=== PATIENT | female | born 1975 | race Caucasian/White ===

== ENCOUNTER 2016-08-28 09:02 | Emergency (ER) | payer OTHER ==
[~2016-08-28] VITALS: Ht 160 cm; Wt 68.2 kg
[~2016-08-28 09:02] MED LIST: CLON-399 PO; LORA-303 PO; LORA1TAB PO
[2016-08-28 09:06] VITALS: BP 126/84; PULSE 77; RESP 15; O2SAT 98
--- NOTE | 2016-08-28 09:08 | ED.REPORT ---
HPI-Abd Pain F 40 and Over Date of Service Aug 28, 2016 ED Provider: Uri Forde DO Pt is a 40 y/o female w/ a hx of kidney stones, HTN, alcoholism in recovery, presenting to the ED c/o right flank pain onset 24 hours ago. She has had kidney stones previously and believes this pain to be exactly similar. Her first kidney stone required surgery due to size. She c/o associated dysuria, nausea. Pt denies hematuria, fever, chills, vomiting, abdominal pain. Nursing Notes Stated Complaint: ABDOMINAL PAIN Chief Complaint: Female Abdominal Pain Nursing Notes Reviewed: Yes Allergies: Coded Allergies: morphine (Verified Allergy, Intermediate, Rash, 02/25/16) CAN TOLERATE OXYCODONE PER PATIENT 10/27/15 VLO metoclopramide (Verified Adverse Reaction, Severe, EPS, 02/25/16) Scheduled PRN Clonidine ER (Clonidine ER) 0.1 Mg Tablet 0.1 MG PO PRN HYPERtension Lorazepam (Lorazepam) 1 Mg Tablet 1 MG PO TID PRN PRN For Anxiety Lorazepam (Ativan) 1 Mg Tablet 1 MG PO DIRECTED PRN PRN For Anxiety Take 2 tabs every 6 hours for 2 days, 1 tab every 6 hours for 2 days, 1 tablet 3 times a day for 2 days, stop. General Time Seen by MD: 09:08 Chief Complaint Flank pain right Hx Obtained From: Patient Arrived By: Walk-in Sudden in Onset?: No Onset Occurred: 1 day ago Symptom Duration: Since onset Progression since Onset: Constant Location: : Flank right Quality: Painful Severity: Current: Moderate Severity: Maximum: Severe Recent Healthcare: Previous diagnosis Similar Sx Previous: Yes Past Medical History Past Medical History Notes: Multiple ED visits for ETOH (last ED visit 05/31/16) Past Medical History Anxiety GERD Kidney Stone UTI Alcohol withdrawal- Acute visual hallucinations and altered mental status, likely secondary to alcohol withdrawal alcohol abuse Echogenic liver chronic anemia Reports: Hypertension Past Surgical History breast implants 12/27/2015, rectocele and cystocele Abdominoplasty Reports: Hysterectomy Family History non-contributory Smoking History Never Smoker Social History Former alcoholic Alcohol Use: In recovery Drug Use: Meth Other Social History: Good social support, , Local resident Occupation works 2 jobs has 5 children Ambulatory Status Independent Review of Systems Constitutional: Denies: Chills, Fever Respiratory: Denies: Non-productive cough, Shortness of breath Cardiovascular: Denies: Chest pain, Dyspnea on exertion GI: Reports: Nausea, Denies: Abdominal pain, Vomiting Female: Reports: Dysuria, Flank pain, Denies: Hematuria Complete sys rev & neg: except as marked. Physical Exam Vital Signs Vital Signs (First) Date Time Temp Pulse Resp B/P Pulse Ox O2 Delivery O2 Flow Rate FiO2 08/28/16 09:06 36.8 77 15 126/84 98 Room Air Initial VS: Reviewed Head / Eyes: Atraumatic, Normocephalic, PERRL ENT: Mucous membranes moist, Conjunctiva normal, No scleral icterus Neck: Supple, Full range of motion Extremities: Vascular intact, Neuro intact, No swelling, No tenderness Skin: Warm, Dry, No cyanosis Neurologic: Alert, Oriented, Nonfocal Psychiatric: Mood/affect normal, Behavior normal, Normal thought content General/Constitutional: Awake, Alert, Cooperative, Not toxic appearing Distress / Hydration: Positive: Distress moderate Appearance / Presentation: Positive: In pain Respiratory / Chest: Atraumatic, Breath sounds NL, Breath sounds = bilat, No respiratory distress, No rales, No rhonchi, No wheezing, No retractions, No stridor, No chest tenderness, No chest wall deformity, No crepitus Cardiovascular: Heart rate NL, Regular rhythm, Heart sounds NL, No gallop, No murmurs, No rubs, Cap refill not delayed, Peripheral circulation NL Abdomen: Atraumatic, Soft, No guarding, No rebound, No palpable mass Tenderness/Guarding/Rebound: Positive: Tender flank L (mild), Tender flank R ( moderate) Back: Full range of motion, Painless range of motion Interpretation & Diagnostics Lab Results Interpretation Result Diagram: 08/28/16 0958 08/28/16 0958 Test 08/28/16 09:58 White Blood Count 5.6th/mm3 (3.8-10.1) Red Blood Count 4.06mil/mm3 (3.90-5.20) Hemoglobin 13.4g/dL (12.0-15.6) Hematocrit 38.4% (35.0-46.0) Mean Corpuscular Volume 94.6fL (81-100) Mean Corpuscular Hemoglobin 33.0pg (27.0-35.0) Mean Corpuscular Hemoglobin Concent 34.9% (32.0-37.0) Red Cell Distribution Width 11.7% (12.3-15.4) Platelet Count 106bil/L (150-400) Neutrophils (%) (Auto) 66.2% (40-74) Lymphocytes (%) (Auto) 25.6% (14-46) Monocytes (%) (Auto) 7.2% (4-12) Eosinophils (%) (Auto) 0% (0-5) Basophils (%) (Auto) 0.5% (0-3) Sodium Level 141mEq/L (134-144) Potassium Level 4.2mEq/L (3.5-5.2) Chloride Level 98mEq/L (97-108) Carbon Dioxide Level 19mmol/L (18-29) Blood Urea Nitrogen 10mg/dL (6-24) Creatinine 0.69mg/dL (0.57-1.00) Estimat Glomerular Filtration Rate 135mL/min (>59) Glucose Level 117mg/dL (60-99) Calcium Level 9.0mg/dL (8.5-10.1) Magnesium Level 1.8mg/dL (1.6-2.6) Total Bilirubin 0.4mg/dL (0.0-1.2) Aspartate Amino Transf (AST/SGOT) 29U/L (0-50) Alanine Aminotransferase (ALT/SGPT) 28U/L (0-32) Alkaline Phosphatase 62U/L (25-150) Total Protein 7.6g/dL (6.4-8.4) Albumin 4.8g/dL (3.4-5.0) Lipase 19U/L (13-60) Hold [place] Top Tube Received (Received) Re-Eval/Medical Decision Med Decision/Clinical Course Initially, there is moderate concern for a large obstructing kidney stone given the patient's presentation and reported clinical history. An IV was placed and she was medicated. It was then noted by staff that she had eloped from the emergency department apparently with her IV still in Place. Police Department was notified after the premises had been searched and no signs of the patient had been found. Please refer to the nursing notes for further detail on this. Source of Hx: Old records Re-Evaluation/Progress : Time of Eval: 10:10 Re-Evaluation/Progress Note: Patient has left the ED without notifying staff. She unhooked her IV fluids and got dressed and left after the Dilaudid injection. Her IV remained in place. Security will be notified. Counseled Regarding: Diagnosis, Lab results, Need for follow-up, When/why to return to ED Discharge & Departure Primary Impression: Flank pain Disposition: Home (eloped) Discharge Condition All VS Reviewed: Yes Condition: Stable patient eloped Referrals: Karuna Clarke MD (PCP) Karlaibpayton Attestation Portions of this note were transcribed by Dain Herr. I, Dr. Forde personally performed the history, physical exam and medical decision-making; I reviewed and confirmed the accuracy of the information in the transcribed note. Signed by Rona Tate, 08/28/16 - 1000 copies to: Karuna Clarke MD, Timothy S DO Aug 28, 2016 09:08 DAIN HERR Aug 28, 2016 09:16
[2016-08-28] MEDS ORDERED: 0.9% Sodium Chloride 1,000 ML IV ONE (09:13)
[2016-08-28] MEDS ORDERED: Ondansetron 2 mg/mL 2 mL Inj IVPUSH PRN (09:15)
[2016-08-28] MEDS ORDERED: HYDROmorphone 0.5 mg/0.5 mL iSecure Syringe IVPUSH SCH (09:35)
[2016-08-28] MEDS ORDERED: Promethazine Inj 25 MG in Dextrose 5%-Pha MIX 50 ML IV ONE (09:45)
[2016-08-28] MEDS ORDERED: diphenhydrAMINE 50 mg Capsule PO ONE (09:45)
[2016-08-28] MEDS ORDERED: diphenhydrAMINE 25 mg Capsule PO ONE (10:10)
[2016-08-28 10:30] LABS: BASOPHILS % (AUTO) 0.5 % (0-3); EOSINOPHILS % (AUTO) 0 % (0-5); MONOCYTES % (AUTO) 7.2 % (4-12); Mean Corpuscular Volume 94.6 fL (81-100); NEUTROPHILS % (AUTO) 66.2 % (40-74)
[2016-08-28 10:39] LABS: Magnesium 1.8 mg/dL (1.6-2.6)
== END 2016-08-28 10:15 | disposition home or self-care (01) ==
LOC: SED 09:02
DX: R10.31 Right lower quadrant pain (principal); R30.0 Dysuria; R11.0 Nausea; I10 Essential (primary) hypertension; K21.9 Gastro-esophageal reflux disease without esophagitis; Z88.5 Allergy status to narcotic agent; Z88.8 Allergy status to other drugs, medicaments and biological substances
CPT/HCPCS: 36415; 80053; 83690; 83735; 85025; 96361; 96374; 96375; 99285; J1170; J2405; J7030

== ENCOUNTER 2016-12-29 00:16 | Emergency (ER) | payer OTHER ==
[~2016-12-29] VITALS: Ht 160 cm; Wt 66.4 kg
[2016-12-29 00:20] VITALS: BP 161/81; PULSE 95; RESP 20; O2SAT 98
--- NOTE | 2016-12-29 00:58 | ED.REPORT ---
HPI-Neurologic Deficit Date of Service Dec 29, 2016 ED Provider: Cooper Lopez DO Patient is a 41 year old female with a history of alcohol abuse who presents to the ED complaining of tingling in her left arm onset 4 days ago. Associated symptoms include fatigue, shaking, unsteady gait, headache, an intermittent "rushing" feeling in her ears, tingling that radiates down her left leg, episodes of involuntary muscle spasms and the inability to finish sentences. Patient's notes that these episodes generally happen with anxiety provoking situations such as loud noises. She was seen yesterday, where she had a CT done and they told her she was not having a stroke. The patient's last drink was 4 months ago. She denies history of a seizure disorder. Nursing Notes Stated Complaint: STROKE SYMPTOMS Chief Complaint: Neuro Symptoms/ Deficits Nursing Notes Reviewed: Yes Allergies: Coded Allergies: morphine (Verified Allergy, Intermediate, Rash, 12/29/16) CAN TOLERATE OXYCODONE PER PATIENT 10/27/15 VLO metoclopramide (Verified Adverse Reaction, Severe, EPS, 12/29/16) Scheduled PRN Clonidine ER (Clonidine ER) 0.1 Mg Tablet 0.1 MG PO PRN HYPERtension Lorazepam (Lorazepam) 1 Mg Tablet 1 MG PO TID PRN PRN For Anxiety Lorazepam (Ativan) 1 Mg Tablet 1 MG PO DIRECTED PRN PRN For Anxiety Take 2 tabs every 6 hours for 2 days, 1 tab every 6 hours for 2 days, 1 tablet 3 times a day for 2 days, stop. General Time Seen by Provider: 00:45 Chief Complaint Numbness arm... (Left) Hx Obtained From: Patient Arrived By: Walk-in Sudden in Onset?: Yes Onset Occurred: 4 days ago Symptom Duration: Since onset Location: : Arm left: Head: Leg left Quality: Fullness, Painful, Sharp Associated with: Reports: Balance problem, Headache, Involuntary movements Recent Healthcare: No recent hospitalization, Recent doctor visit Similar Sx Previous: No Past Medical History Past Medical History Notes: Multiple ED visits for ETOH (last ED visit 05/31/16) Past Medical History Anxiety GERD Kidney Stone UTI Alcohol withdrawal- Acute visual hallucinations and altered mental status, likely secondary to alcohol withdrawal alcohol abuse Echogenic liver chronic anemia Reports: Hypertension Past Surgical History breast implants 12/27/2015, rectocele and cystocele Abdominoplasty Reports: Hysterectomy Family History non-contributory Smoking History Current Some Day Smoker Social History Former alcoholic Alcohol Use: In recovery Drug Use: Meth Other Social History: Good social support, , Local resident Occupation works 2 jobs has 5 children Ambulatory Status Independent Review of Systems Constitutional: Reports: Fatigue, Denies: Chills, Fever Respiratory: Denies: Non-productive cough, Shortness of breath GI: Denies: Vomiting Musculoskeletal: Reports: Extremity pain Skin: Denies Itching, Denies Rash Neurologic: Reports: Headache, Numbness, Problem walking, Slurred speech Complete sys rev & neg: except as marked. Ears / Nose / Throat: Reports: Ear ringing bilateral Physical Exam Initial Vital Signs Vital Signs (First) Date Time Temp Pulse Resp B/P Pulse Ox O2 Delivery O2 Flow Rate FiO2 12/29/16 00:20 37.0 95 20 161/81 98 Room Air Initial VS: Reviewed General/Constitutional: Awake, Alert, No acute distress Head / Eyes: Atraumatic, Normocephalic, PERRL, EOMI Respiratory / Chest: Atraumatic, Breath sounds NL, Breath sounds = bilat, No respiratory distress Cardiovascular: Heart rate NL, Regular rhythm, Heart sounds NL Neurologic: Oriented X3, No motor deficits, No sensory deficits, Memory NL Abdomen: Atraumatic, Soft, Non-tender Lower Extremity / Pelvis / MS: Atraumatic, Full range of motion Skin: Atraumatic, Color NL, No rash, Warm, Dry Abnormal Mood/Affect: Positive: Anxious, Pressured speech Interpretation & Diagnostics Lab Results Interpretation Result Diagram: 12/29/16 0125 Test 12/29/16 01:18 12/29/16 01:25 12/29/16 02:30 Urine Color Yellow (YELLOW) Urine Appearance Hazy (CLEAR,HAZY) Urine pH 7.0 (5.0-8.0) Urine Specific [place] 1.006 (1.003-1.035) Urine Protein Negativemg/dL (NEG,TRACE) Urine Glucose (UA) Negativemg/dL (NEGATIVE) Urine Ketones Negativemg/dL (NEGATIVE) Urine Occult Blood Negative (NEGATIVE) Urine Nitrite Negative (NEGATIVE) Urine Bilirubin Negative (NEGATIVE) Urine Urobilinogen Normalmg/dL (NORMAL) Urine Leukocyte Esterase Negative (NEGATIVE) Urine RBC 0-2/hpf (0-2) Urine WBC 0-5/hpf (0-5) Urine Epithelial Cells Many/hpf (NONE-MOD) Urine Crystals None seen (NONE SEEN) Urine Bacteria Few/hpf (NONE-FEW) Urine Hyaline Casts None/lpf (NONE) Urine Granular Casts None seen (NONE SEEN) Urine Waxy Casts None seen (NONE SEEN) Urine Red Blood Cell Casts None seen (NONE SEEN) Urine White Blood Cell Casts None seen (NONE SEEN) Urine Mucus None seen (None Seen) Urine Trichomonas None seen (NONE SEEN) Urine Yeast None (NONE SEEN) Urinalysis Comment None Urine Culture Reflexed Not indicated White Blood Count 7.1th/mm3 (3.8-10.1) Red Blood Count 4.02mil/mm3 (3.90-5.20) Hemoglobin 13.3g/dL (12.0-15.6) Hematocrit 39.8% (35.0-46.0) Mean Corpuscular Volume 99.0fL (81-100) Mean Corpuscular Hemoglobin 33.1pg (27.0-35.0) Mean Corpuscular Hemoglobin Concent 33.4% (32.0-37.0) Red Cell Distribution Width 12.2% (12.3-15.4) Platelet Count 171bil/L (150-400) Neutrophils (%) (Auto) 51.3% (40-74) Lymphocytes (%) (Auto) 33.2% (14-46) Monocytes (%) (Auto) 10.9% (4-12) Eosinophils (%) (Auto) 4.0% (0-5) Basophils (%) (Auto) 0.3% (0-3) Hold [place] Top Tube Received (Received) Troponin T 0.010ug/L (0.0-0.011) Thyroid Stimulating Hormone (TSH) 5.490uIU/mL (0.450-4.500) Free Thyroxine 0.87ng/dL (0.82-1.77) ECG Interpretation Time: 01:14 Interpreted by: ED physician Normal ECG Interpretation: Normal rate (96), Normal sinus rhythm Re-Eval/Medical Decision Med Decision/Clinical Course A stroke syndrome/vascular territory infarct seems unlikely however this warrants CT and CT angios. I think that maybe she is having seizures or profound anxiety. Either way IV Ativan followed by Valium seemed to help. Her NIH stroke score is 0. Her symptoms been ongoing for greater than [address] and U Gary is normal and her head CT is normal stroke is highly unlikely. I do recommend close outpatient follow-up. I am signing this out to Dr. Burciaga and he will follow up with a CT and CT angiogram. Re-Evaluation/Progress #1: Time of Eval: 02:20 Re-Evaluation/Progress Note: Patient is still having tremors. Re-Evaluation/Progress #2: Time of Eval: 03:09 Patient Status: Mild relief Re-Evaluation/Progress Note: Discussed plan for transfer of care and plan for CT. Counseled Regarding: Diagnosis, Lab results, Need for follow-up, When/why to return to ED Discharge & Departure Shift Change Sign-Out Patient Care Transferred: Yes Discussed Complaint(s): Yes Impression: Primary Impression: Tremor Additional Impression: Myoclonic jerking Disposition: Home Discharge Condition All VS Reviewed: Yes Condition: Stable Patient Instructions: Anxiety (ED), Generalized Tonic Clonic Seizures (ED), Ischemic Stroke (DC) Additional Instructions: Your CT scans were normal and reassuring. It is unlikely you had a stroke. I recommend follow up with EEG and MRI testing. You can take 1 Valium every 8 hours for the tremor. Do not drink alcohol or drive while taking the Valium. Do not combine with Acetaminophen. Do not drive tonight, as you received Valium here in the ED. Call the attached referral for Dr. Aaron on Friday to schedule a follow up appointment. Let them know you were seen at the ED and underwent a stroke workup that was normal. Return to the emergency department if you develop any new or concerning symptoms. Referrals: Karuna Clarke MD (PCP) Alycia Aaron MD Care Transferred to: Dr. Galicia Care Transferred at: 03:06 Rona Attestation Portions of this note were transcribed by Ruma Valenzuela. I, Dr. Lopez personally performed the history, physical exam and medical decision-making; I reviewed and confirmed the accuracy of the information in the transcribed note. Signed by: Rona Camilo, 12/29/16 and 0120 copies to: Alycia Aaron MD; Karuna Clarke MD, Todd P DO Dec 29, 2016 00:58 Charity Valenzuela Dec 29, 2016 01:11
[2016-12-29 01:32] LABS: APPEARANCE,URINE HAZY (CLEAR,HAZY); COLOR,URINE YELLOW (YELLOW); OCCULT BLOOD,URINE NEGATIVE (NEGATIVE); UROBILINOGEN,URINE NORMAL (NORMAL)
[2016-12-29 01:38] LABS: BASOPHILS % (AUTO) 0.3 % (0-3); MONOCYTES % (AUTO) 10.9 % (4-12); Mean Corpuscular Hemoglobin 33.1 pg (27.0-35.0); NEUTROPHILS % (AUTO) 51.3 % (40-74); Platelet Count 171 bil/L (150-400)
[2016-12-29] MEDS ORDERED: oxyCODONE-Acetamin 5-325 mg Tablet PO ONE (02:30)
[2016-12-29 03:10] LABS: TROPONIN T 0.01 ug/L (0.0-0.011)
[2016-12-29 03:24] VITALS: BP 139/86; PULSE 18; RESP 17; O2SAT 96
[2016-12-29 05:08] VITALS: BP 135/84; PULSE 19; RESP 19; O2SAT 94
[2016-12-29] MEDS ORDERED: Sodium Chloride LOK Flush 10 mL Syringe IVFLUSH SCH (08:30)
--- NOTE | 2016-12-29 10:33 | DRSVH ---
PROCEDURE: CT ANGIO HEAD AND NECK (P) INDICATIONS: left arm weaknes TECHNIQUE: Pre-contrast 4.5 mm thick sections acquired from the foramen magnum to the vertex. After the adminis tration of intravenous contrast, 1 mm thick sections acquired from the aortic arch through the [place] of [place]. Post-contrast 4.5 mm thick sections then re-acquired from the foramen magnum to the vert ex. 3-dimensional cetxapf-espsjrgax-ihpayszofn (MIP) and/or volume rendering reformats were acquired of the central intracranial vasculature and neck separately. For radiation dose reduction, the foll owing was used: automated exposure control, adjustment of mA and/or kV according to patient size. COMPARISON: [facility], CT, CT BRAIN WO CON, 05/17/2016, 17:48. FINDINGS: Image quality: Excellent. BRAIN: CSF spaces: Ventricles are normal in size and shape. Basal cisterns are patent. No extra-axial flu id collections. Brain: No midline shift. No intracranial bleeds or masses. Loya-white matter interface appears int act. Skull and face: Calvarium and facial bones appear intact, without suspicious lesions. Orbits appear normal. Sinuses: Sinuses and mastoids are clear. HEAD CT ANGIOGRAPHY: Anterior circulation: Intracranial internal carotid arteries are normal in size and flow. The flow within the paired anterior cerebral arteries is normal and symmetric. The flow within the middle cer ebral arteries is normal and symmetric. The anterior communicating artery is seen. No aneurysms are seen. Posterior circulation: Visualized portions of the vertebral arteries demonstrate asymmetric right ve rtebral dominant caliber, and join to form a normal appearing basilar artery. Flow within the chemical plant technical director ior cerebral arteries is normal and symmetric. No aneurysms are seen. NECK CT ANGIOGRAPHY: Carotid system: The great vessels demonstrate a conventional anatomy as they arise from the aortic a [facility]. The origins of the common carotid arteries appear patent. The common carotid arteries demonstr ate normal caliber and courses. The bifurcation regions are both widely patent. The internal caroti d arteries demonstrate normal calibers and courses. Posterior circulation: The origins of the vertebral arteries both appear widely patent. The more lester perior extracranial portions of both vertebral arteries also demonstrate normal courses and calibers. They join to form a normal appearing basilar artery. Soft tissues: Visualized neck soft tissues demonstrate no suspicious abnormalities. Bones: No suspicious bony lesions. Visualized cervical spine appears normally aligned. IMPRESSION: No aneurysm or stenosis found, source of current symptoms is not seen. Right vertebral a rtery dominant posterior circulation, as a normal anatomic variant. Dictated by: Juan Lucero M.D. on 12/29/2016 at 10:28 Approved by: Juan Lucero M.D. on 12/29/2016 at 10:31
== END 2016-12-29 05:10 | disposition home or self-care (01) ==
LOC: SED 00:16
DX: R25.1 Tremor, unspecified (principal); G25.3 Myoclonus; I10 Essential (primary) hypertension; K21.9 Gastro-esophageal reflux disease without esophagitis; F17.200 Nicotine dependence, unspecified, uncomplicated; Z90.710 Acquired absence of both cervix and uterus; F10.10 Alcohol abuse, uncomplicated
CPT/HCPCS: 36415; 70496; 70498; 80053; 81000; 84439; 84443; 84484; 85025; 93005; 96374; 96375; 99285; J2060; J3360; Q9967

== ENCOUNTER 2017-01-04 12:27 | Observation (INO) | payer OTHER ==
[2017-01-04] VITALS (7 sets, daily range): BP systolic 82–151; BP diastolic 58–113; PULSE 61–72; RESP 14–18; O2SAT 97–100
[~2017-01-04] VITALS: Ht 160 cm; Wt 71.3 kg
--- NOTE | 2017-01-04 12:42 | ED.REPORT ---
HPI-General Illness Date of Service Jan 04, 2017 ED Provider: Uri Forde DO The patient is a 41 year old female with history of anxiety, alcohol abuse, GERD , hypertension, and chronic anemia, who presents to the emergency department with multiple complaints. The patient states initially about 1 week ago she experienced extreme fatigue. She then developed dizziness, slurred speech, and difficulty finishing sentences and word finding. She then developed tremors, jolts of pain down her arms and legs, headache, and rushing sounds in her ears. She denies bladder or bowel incontinence, numbness or focal weakness. This is her 4th visit for these symptoms since onset. At one point she was given Valium that helped with her muscle pain. Today she developed visual and auditory hallucinations. The patient states she is seeing things that are not there and has been talking to people that aren't there. She does believe her anxiety is playing a role in these symptoms. She has been unable to sleep over the last several days. She denies new medications or medication changes. The patient has history of alcohol abuse. Her last drink was 4 months ago. She just got home from treatment 2 weeks ago. She denies recent illnesses. Nursing Notes Stated Complaint: HALLUCINATIONS/WEAKNESS Chief Complaint: General Complaint Nursing Notes Reviewed: Yes Allergies: Coded Allergies: morphine (Verified Allergy, Intermediate, Rash, 12/29/16) CAN TOLERATE OXYCODONE PER PATIENT 10/27/15 VLO metoclopramide (Verified Adverse Reaction, Severe, EPS, HALLUCINATIONS, 01/04/17) Scheduled Bupropion ER (Bupropion ER) 300 Mg Tab.er.24h 300 MG PO QAM Clonidine (Clonidine) 0.2 Mg Tablet 0.2 MG PO BID Divalproex DR (Depakote DR) 500 Mg Tablet 1,000 MG PO HS Swallowed whole without chewing to avoid local irritation of the mouth and throat. Gabapentin (Gabapentin) 600 Mg Tablet 600 MG PO BID Ranitidine (Ranitidine) 150 Mg Capsule 150 MG PO BID Topiramate ER (Topiramate ER) 150 Mg Capsule 300 MG PO HS Trazodone (Trazodone) 100 Mg Tablet 200 MG PO HS Venlafaxine ER (Venlafaxine ER) 225 Mg Tab.er.24 225 MG PO QAM Scheduled PRN Acetaminophen (Acetaminophen) 325 Mg Tablet 650 MG PO DAILY PRN PRN For Headache Ibuprofen (Ibuprofen) 200 Mg Capsule 400 MG PO DAILY PRN PRN For Headache Prochlorperazine Maleate (Prochlorperazine) 10 Mg Tablet 10 MG PO Q8 PRN PRN For Nausea/Vomiting Sumatriptan Succinate (Sumatriptan Succinate) 50 Mg Tablet 50 MG PO ASDIRECTED PRN PRN For Headache TAKE 1 TABLET AT ONSET OF MIGRAINE. MAY REPEAT IN 2 HRS IF NEEDED. MAX 2 DOSES/24 HRS General Time Seen by MD: 12:39 Chief Complaint Other (hallucinations) Hx Obtained From: Patient, Spouse Arrived By: Walk-in Sudden in Onset?: No Onset Occurred: More than a week ago... Symptom Duration: Since onset Severity: Current: No pain currently Severity: Maximum: No pain Recent Healthcare: No recent hospitalization, Recent doctor visit Similar Sx Previous: Yes Past Medical History Past Medical History Notes: Multiple ED visits for ETOH Past Medical History Anxiety GERD Kidney Stone UTI Alcohol withdrawal- Acute visual hallucinations and altered mental status, likely secondary to alcohol withdrawal Alcohol abuse Echogenic liver Chronic anemia Reports: Hypertension Past Surgical History Breast implants 12/27/2015, Rectocele and cystocele Abdominoplasty Reports: Hysterectomy Family History non-contributory Smoking History Current Some Day Smoker Social History Hx of alcohol abuse, last drink 4 months ago. Alcohol Use: In recovery Drug Use: Meth Other Social History: Good social support, , Local resident Occupation works 2 jobs has 5 children Ambulatory Status Independent Review of Systems +jolts of pain Full Review of Systems Constitutional: Reports: Fatigue, Denies: Chills, Fever Ears / Nose / Throat: Reports: Ear ringing bilateral, Denies: Nasal congestion, Sore throat Respiratory: Denies: Non-productive cough GI: Denies: Abdominal pain, Diarrhea, Nausea, Vomiting Neurologic: Reports: Dizziness, Headache, Shaking (tremors), Slurred speech Psychiatric: Reports: Anxiety, Hallucinations, auditory, Hallucinations, visual Complete sys rev & neg: except as marked. Physical Exam Vital Signs Vital Signs Date Time Temp Pulse Resp B/P Pulse Ox O2 Delivery O2 Flow Rate FiO2 01/04/17 18:22 69 16 151/113 01/04/17 17:30 65 14 136/99 99 Room Air 01/04/17 15:36 70 16 138/99 99 Room Air 01/04/17 14:22 66 15 116/86 01/04/17 12:33 36.2 72 18 82/58 100 Initial VS: Reviewed ENT: Mucous membranes moist, Conjunctiva normal, No scleral icterus Neck: Supple, Non-tender, Full range of motion Respiratory: Breath sounds normal, Clear to auscultation, No respiratory distress Cardiovascular: Regular rate & rhythm, Heart sounds normal, Intact distal pulses Abdomen / GI: Soft, Non-tender, No guarding, No rebound, No distention Extremities: Vascular intact, Neuro intact, No swelling, No tenderness Skin: Warm, Dry, No cyanosis General/Constitutional: Cooperative She appears mildly somnolent. Head / Eyes: Atraumatic, Normocephalic, PERRL, EOMI Neurologic: Oriented X3, Speech NL, No motor deficits, No sensory deficits, CN II - XII intact, Cerebellar NL, Memory NL Psychiatric: Affect NL, Mood NL, Not suicidal, Not homicidal, Cognitive function NL, Judgment/insight NL, Thought content NL Abnormal Thinking / Perception: Positive: Hallucinations, auditory, Hallucinations, visual Interpretation & Diagnostics Lab Results Interpretation Result Diagram: 01/04/17 1408 01/04/17 1408 Test 01/04/17 14:08 01/04/17 15:45 01/04/17 18:00 White Blood Count 6.8th/mm3 (3.8-10.1) Red Blood Count 3.96mil/mm3 (3.90-5.20) Hemoglobin 13.0g/dL (12.0-15.6) Hematocrit 39.4% (35.0-46.0) Mean Corpuscular Volume 99.5fL (81-100) Mean Corpuscular Hemoglobin 32.8pg (27.0-35.0) Mean Corpuscular Hemoglobin Concent 33.0% (32.0-37.0) Red Cell Distribution Width 12.0% (12.3-15.4) Platelet Count 234bil/L (150-400) Sodium Level 138mEq/L (134-144) Potassium Level 4.2mEq/L (3.5-5.2) Chloride Level 102mEq/L (97-108) Carbon Dioxide Level 20mmol/L (18-29) Blood Urea Nitrogen 11mg/dL (6-24) Creatinine 1.04mg/dL (0.57-1.00) Estimat Glomerular Filtration Rate 84mL/min (>59) Glucose Level 105mg/dL (60-99) Calcium Level 9.2mg/dL (8.5-10.1) Total Bilirubin 0.2mg/dL (0.0-1.2) Aspartate Amino Transf (AST/SGOT) 12U/L (0-50) Alanine Aminotransferase (ALT/SGPT) 11U/L (0-32) Alkaline Phosphatase 52U/L (25-150) Total Protein 6.9g/dL (6.4-8.4) Albumin 3.9g/dL (3.4-5.0) Salicylates Level < 3.0ug/mL (30-250) Acetaminophen Level < 15.0ug/mL Rx (10-25) Alcohols < 10mg/dL (0-10) CSF Appearance Clear (CLEAR) CSF Color Colorless (COLORLESS) CSF WBC 1/mm3 (0-5) CSF RBC 0/mm3 CSF Mononuclear WBCs % CSF Polynuclear WBCs % CSF Other Cells CSF Glucose 69mg/dL (45-90) CSF Total Protein 44mg/dL (15-45) Urine Color Straw (YELLOW) Urine Appearance Clear (CLEAR,HAZY) Urine pH 6.5 (5.0-8.0) Urine Specific [place] <1.005 (1.003-1.035) Urine Protein Negativemg/dL (NEG,TRACE) Urine Glucose (UA) Negativemg/dL (NEGATIVE) Urine Ketones Negativemg/dL (NEGATIVE) Urine Occult Blood Negative (NEGATIVE) Urine Nitrite Negative (NEGATIVE) Urine Bilirubin Negative (NEGATIVE) Urine Urobilinogen Normalmg/dL (NORMAL) Urine Leukocyte Esterase Negative (NEGATIVE) Urine RBC 0-2/hpf (0-2) Urine WBC 0-5/hpf (0-5) Urine Epithelial Cells Few/hpf (NONE-MOD) Urine Crystals None seen (NONE SEEN) Urine Bacteria None/hpf (NONE-FEW) Urine Hyaline Casts None/lpf (NONE) Urine Granular Casts None seen (NONE SEEN) Urine Waxy Casts None seen (NONE SEEN) Urine Red Blood Cell Casts None seen (NONE SEEN) Urine White Blood Cell Casts None seen (NONE SEEN) Urine Mucus None seen (None Seen) Urine Trichomonas None seen (NONE SEEN) Urine Yeast None (NONE SEEN) Urinalysis Comment None Urine Culture Reflexed Not indicated Procedures Lumbar Puncture Text / Dict Note: Clear fluid obtained. Time: 15:35 Procedure Performed by: ED physician Consent / Setup / Site Prep: Informed consent provided, Consent from patient , Time-out performed, Hand hygiene observed, Stand sterile technique, Sterile drapes applied, Patient sitting up Skin Preparation Agent: Hibiclens - Chlorhexidine Local Anesthesia: Lidocaine 1%, 27g needle Inserted Needle at: L4 L5 Post-Procedure / Complications: Antibiotic oint applied, Dressing applied, No complications, Tolerated procedure well, Patient stable Re-Eval/Medical Decision Med Decision/Clinical Course She presents with 2 weeks of progressive tremulousness, headaches and other symptoms now, needing in auditory and visual hallucinations. Symptoms do not sound like a stroke or seizure activity, the patient had a reassuring head CT and CT angiogram head and neck within the past week or so. Given that her symptoms are progressive a lumbar puncture was performed, and unremarkable for subarachnoid hemorrhage, encephalitis, meningitis, Guillain-Garza syndrome. Patient has walked to and from the bathroom several times with intermittent levels of tremulousness. The case is discussed with social work and on-call psychiatry. Psychiatry suggested this may be some form of delirium tremens or Korsakoff syndrome. IV thiamine and banana bag are ordered. Additionally it is unclear whether her symptoms are related to the many different psychiatric medications that she is taking. Will plan to admit as the symptoms have been progressive and worsening. Psychiatry has agreed to consult on the patient. Source of Hx: Old records, Family Time of Eval: 14:44 Re-Evaluation/Progress Note: Discussed plan for LP with the patient. All questions were addressed. Time of Eval: 17:14 Re-Evaluation/Progress Note: Rechecked the patient. Discussed CSF results and options for plan. The patient would like to stay to have her medications adjusted. Time of Eval: 17:57 Re-Evaluation/Progress Note: Rechecked the patient. Discussed plan for admission. All questions were addressed. Consultation #1: Consulted With: airport utility worker Call Returned at: 17:41 Note: ED manager social responsibility evaluated the patient. She told the manager social responsibility that the hallucinations started after she ran out of the Valium. She has been on her other medications since August. She denies suicidal ideation, homicidal ideations, no previous attempts. The patient is agreeable to go home. Consultation #2: Referral / Consult Name: Rick Andrew MD Consulted With: Psychiatry Requested Call at: 17:48 Call Returned at: 17:50 Color Grinder: Agrees with eval Note: The patient's symptoms sounds like complication alcohol withdrawal or Korsakoff syndrome. He recommends Valium 10 mg BID. He will follow the patient is admitted. Consultation #3: Referral / Consult Name: Diamond Ritchie DO Consulted With: Hospitalist Requested Call at: 17:57 Call Returned at: 19:21 Color Grinder: Will see patient, Agrees with eval, Agrees with plan, Accepts admit Counseled Regarding: Diagnosis, Lab results, Need for follow-up, When/why to return to ED Discharge & Departure Primary Impression: Korsakoff syndrome Additional Impression: Hallucination Disposition: ADMITTED TO HOSPITAL Discharge Condition All VS Reviewed: Yes Condition: Stable Referrals: Karuna Clarke MD (PCP) Scribe Attestation Portions of this note were transcribed by Cehl Thacker. I, Dr. Forde personally performed the history, physical exam and medical decision-making; I reviewed and confirmed the accuracy of the information in the transcribed note. Signed by: Rona Meng, 01/04/2017 at 1800. copies to: Karuna Clarke MD, Timothy S DO Jan 04, 2017 12:42 Chel Thacker Jan 04, 2017 12:50
[2017-01-04] MEDS ORDERED: VENL75CA PO (13:13)
[2017-01-04] MEDS ORDERED: TOPI100T32 PO (13:13)
[2017-01-04] MEDS ORDERED: BUPR150T8 PO (13:13)
[2017-01-04] MEDS ORDERED: GABA-504 PO (13:13)
[2017-01-04] MEDS ORDERED: TRAZ-118 PO (13:13)
[2017-01-04] MEDS ORDERED: CLON0.2T PO (13:13)
[2017-01-04] MEDS ORDERED: DEP500A PO (13:13)
[2017-01-04] MEDS ORDERED: 0.9% Sodium Chloride 1,000 ML IV ONE (13:15)
[2017-01-04 14:18] LABS: Mean Corpuscular Hemoglobin 32.8 pg (27.0-35.0); Mean Corpuscular Volume 99.5 fL (81-100)
[2017-01-04] MEDS ORDERED: Haloperidol 5 mg/mL Inj IVPUSH ONE (16:40)
[2017-01-04 16:53] LABS: APPEARANCE,CSF CLEAR (CLEAR); COLOR,CSF COLORLESS (COLORLESS); WHITE BLOOD CELL,CSF 1 /mm3 (0-5)
[2017-01-04] MEDS ORDERED: Thiamine Inj 100 MG in 0.9% Sodium Chloride 50 ML IV ONE (17:55)
[2017-01-04] MEDS ORDERED: Thiamine Inj 100 MG, Folic Acid Inj 1 MG, Magnesium Sulfate 50% Inj 2 GM, Multivitamins... IV ONE ×5 (17:55)
[2017-01-04] MEDS ORDERED: PROC10TA PO (18:20)
[2017-01-04] MEDS ORDERED: GABA600T2 PO (18:20)
[2017-01-04] MEDS ORDERED: BUPR300T52 PO (18:20)
[2017-01-04] MEDS ORDERED: TOPI150C4 PO (18:20)
[2017-01-04] MEDS ORDERED: IBUP200C PO (18:22)
[2017-01-04] MEDS ORDERED: VENL225T3 PO (18:22)
[2017-01-04] MEDS ORDERED: ACET325T51 PO (18:22)
[2017-01-04] MEDS ORDERED: RANI150C4 PO (18:22)
[2017-01-04] MEDS ORDERED: SUMA50TA2 PO (18:23)
[2017-01-04 18:47] LABS: APPEARANCE,URINE CLEAR (CLEAR,HAZY); COLOR,URINE STRAW (YELLOW); OCCULT BLOOD,URINE NEGATIVE (NEGATIVE); PH,URINE 6.5 (5.0-8.0); UROBILINOGEN,URINE NORMAL (NORMAL)
[2017-01-04] MEDS ORDERED: Alum-Mag Hydrox-Simeth 30 mL Suspension PO PRN (19:25)
[2017-01-04] MEDS ORDERED: Polyethylene Glycol (PEG) 17 Gm Powder PO PRN (19:25)
--- NOTE | 2017-01-04 19:40 | NUR ---
Admit Arrived via tech,took report from Ailyn Alva going off shift,accompanied w/ ,ambulated ind to bed,Dx Korsakoffs Syndrome vs ETOH w/d!?.Banana bag running,presented w/stroke like symptoms all resolved w/exception of foot numbness and MARTINO, applied Telemetry declines to wear gown, orientated to room , here to assess now Addendum: 01/05/17 at 0539 by NIKO DE LA GARZA RN Around 329 patient awoke herself and called stating the hallucinations had started again," hearing people talking to me and I start talking back", gave warm blanket and tried to go back to sleep but couldn't.
[2017-01-04] MEDS: cloNIDine 0.1 mg Tablet PO SCH (21:00)
--- NOTE | 2017-01-04 21:20 | PCM.HPMED ---
Subjective Date of Service Jan 04, 2017 Primary Provider: Admitting Physician: Diamond Ritchie DO Primary Care Physician: Karuna Clarke MD Attending Physician: Diamond Ritchie DO Admit Status: From the Emergency Department, Full Admit Chief Complaint: Headache, Tremors, and Visual Hallucinations History of Present Illness: Patient is a 41y/o Female with a past medical history of HTN, GERD, and EtOH Abuse presenting to the ED with Headache, recent history of visual hallucinations, and tremors. Pt states that she began to feel weakness onset 2 weeks ago with lack of energy as well as falling asleep randomly throughout the day. One week ago patient began to notice tremors in her hands and arms, and would have episodes of clumsiness in her hands leading her to drop things. She notes that Ativan helps control her tremors. She reports a constant headache that is vague in quality that is approximately 7/10 and does not wax or wane. She has had multiple episodes of visual hallucinations where she sees shadow people in her peripheral vision, but they would disappear once she looked in their direction. Twice she has reported having full conversations with a person , only to realize she is the only person in the room and they have disappeared. She notes over these past two weeks she has had increased slurring in her speech, and the inability to find the correct words to say. Patient has a history of alcohol abuse with vodka that went on for "years", and reports her last drink was 09/09/16. When asked if she has had any slip up in her sobriety, patient repeatedly says she has not. She denies any street drug, or non prescribed drug abuse. In the ED, patient was given Haloperidol 2.5mg, Lorazepam 2mg, and Thiamine 100mg due to h/o EtOH abuse and recent hallucinations. Lumbar puncture performed in ED revealed no evidence of Subarachnoid Hemorrhage, Encephalitis, Meningitis, or [place]. Admitted to medicine for overnight observation and psychiatric consult tomorrow morning. Review of Systems: ROS: Constitutional: Denies fevers, Denies Chills HEENT: Denies visual changes, Denies sore throat Cardiovascular: Denies Chest Pain, Denies palpitation Pulmonary: Denies shortness of breath, Denies cough Abdomen: Denies nausea, denies vomiting, has abdominal pain described as crampy : Denies dysuria, denies urinary retention, denies hematuria Musculoskeletal: Has low back pain, Denies joint pain, Denies muscle cramps Neuro: Has tremors, Has headache Psych: Has visual hallucinations, Denies suicidal ideations Allergies Coded Allergies: morphine (Verified Allergy, Intermediate, Rash, 01/04/17) CAN TOLERATE OXYCODONE PER PATIENT 10/27/15 VLO metoclopramide (Verified Adverse Reaction, Severe, EPS, HALLUCINATIONS, 01/04/17) Home Medications Medications per ED documentation; med rec yet to be completed Bupropion ER (Bupropion ER) 300 Mg Tab.er.24h 300 MG PO QAM Clonidine (Clonidine) 0.2 Mg Tablet 0.2 MG PO BID Divalproex DR (Depakote DR) 500 Mg Tablet 1,000 MG PO HS Swallowed whole without chewing to avoid local irritation of the mouth and throat. Gabapentin (Gabapentin) 600 Mg Tablet 600 MG PO BID Ranitidine (Ranitidine) 150 Mg Capsule 150 MG PO BID Topiramate ER (Topiramate ER) 150 Mg Capsule 300 MG PO HS Trazodone (Trazodone) 100 Mg Tablet 200 MG PO HS Venlafaxine ER (Venlafaxine ER) 225 Mg Tab.er.24 225 MG PO QAM Scheduled PRN Acetaminophen (Acetaminophen) 325 Mg Tablet 650 MG PO DAILY PRN PRN For Headache Ibuprofen (Ibuprofen) 200 Mg Capsule 400 MG PO DAILY PRN PRN For Headache Prochlorperazine Maleate (Prochlorperazine) 10 Mg Tablet 10 MG PO Q8 PRN PRN For Nausea/Vomiting Sumatriptan Succinate (Sumatriptan Succinate) 50 Mg Tablet 50 MG PO ASDIRECTED PRN PRN For Headache TAKE 1 TABLET AT ONSET OF MIGRAINE. MAY REPEAT IN 2 HRS IF NEEDED. MAX 2 DOSES/24 HRS PMH GERD, HTN, Anemia, Echogenic Liver, Alcohol Abuse Surgical History Rectocele, Breast Implants, Hysterectomy Family History Father - CAD Social History Hx Alcohol Use: Yes (QUIT 4 MONTHS AGO) Alcoholic Drinks Per Day: Last drink 09/09/16 Hx Substance Use: No Hx Tobacco Use: No Smoking Status: Current Some Day Smoker Living Arrangement: with Family Exam Vital Signs Vital Sign - Last Date Time Temp Pulse Resp B/P Pulse Ox O2 Delivery O2 Flow Rate FiO2 01/04/17 19:48 37.2 61 18 139/88 97 Room Air Exam Patient is a 41 y/o female in no acute distress, that falls asleep easily, but is rousable and conversive. HEENT: EOMI, oral mucosa dry NECK: supple, nontender CARDIOVASCULAR: RRR, no murmurs, no edema noted LUNGS: Clear to auscultation bilaterally, no wheeze, rales, or rhonchi ABDOMEN: mild tenderness generalized to lower abdomen; mild hepatomegaly MUSCULOSKELETAL: Moves all four extremities appropriately, Patient ambulates without assistance to bathroom NEURO: No focal deficits, Strength 5/5 bilateral upper extremities and lower extremities PSYCH: slurs speech, falls asleep easily, but is easily roused with conversation ; Patient used inappropriate words occasionally in sentences making the statement "I'm not an average 'horse'..... I mean not an average human being"; denies current visual hallucinations; denies suicidal ideations Lab and Diagnostics Labs UA shows no evidence of protein, glucose, bacteria in urine. Salicylates <3.0 Acetaminophen <15 Valproic Acid 62 Alcohols <10 Result Diagram: 01/04/17 1408 01/04/17 1408 Microbiology Cerebral Spinal Fluid Gram Stain Report: BERNIE GS (GRAM STAIN) Preliminary 01/04/17-1707 GRAM STAIN RESULT NO ORGANISMS SEEN NO POLYS SEEN Assessment & Plan Patient is a 41y/o Female with a past medical history of HTN, GERD, and EtOH Abuse presenting to the ED with Headache, recent history of visual hallucinations, and tremors. Admitted to medicine for overnight observation and psychiatric consult. 1. Altered Mental Status- chronicity undetermined, but present on admission -Delerium vs. Thiamine Deficiency vs Wernicke Korsakoff - Patient w/ h/o EtOH abuse with recent h/o visual hallucinations, tremors, and slurred speech with inappropriate word usage - Given Thiamine 100mg in ED - Given Haloperidol IM 2.5mg in ED - Given Lorazepam 2mg in ED - Ativan 2mg IV PRN for agitation, tremors - Psychiatry consulted, will see patient in the morning 2. Headache - LP r/o meningitis, [place], Subarachnoid Hemorrhage - Recent CT study on 12/29/16 showed no acute changes, consider CT if patient' s headache worsen acutely overnight or worsening altered mental status. - Current headache is 4/10 - Acetaminophen 650mg PO Q4 PRN Pain 3. Mildly elevated Creatinine, chronicity unknown - Patient has increase in serum creatinine as from baseline, but does not meet the criteria for ABDIRASHID. Likely due to patient dehydration. - Monitor, CMP in the morning 4. H/o EtOH abuse - Patient reports last drink 09/09/16, however unreliable historian. - DT prophylaxis, Ativan as noted above 5. H/o HTN - Patient is on Clonidine 0.2mg PO BID 6. H/o GERD -Maalox 30mL PO Q6H PRN Patient is admitted under observation status and will likely be admitted <2 midnights due to severity of illness. Maintenance: PRN, antiemetics, fever, pain -Anticoagulation - Heparin subQ 5,000 units - Diet regular - Patient is FULL CODE Pain Evaluation: Adequate Pain Control GI Prophylaxis: Not indicated (Patient Eating) VTE Prophylaxis: Sub-Q Heparin (Unfractionated) Resuscitation Status: CPR: Attempt Resuscitation (Patient is FULL CODE) Attending Statement The patient was seen and examined together with house staff on 01/04/2017 and I agree with the history, exam and plan as outlined in the note above. Dread Calvert DO Jan 04, 2017 20:38 Diamond Ritchie DO Jan 04, 2017 22:40
[2017-01-04] MEDS: Heparin 5,000 Unit/mL Inj SUBQ SCH (23:54)
[2017-01-05] VITALS (10 sets, daily range): BP systolic 101–156; BP diastolic 66–106; PULSE 52–62; RESP 12–18; O2SAT 98–100
[2017-01-05 07:32] LABS: BASOPHILS % (AUTO) 0.4 % (0-3); EOSINOPHILS % (AUTO) 6.1 % (0-5); MONOCYTES % (AUTO) 9.3 % (4-12); Mean Corpuscular Hemoglobin 32.4 pg (27.0-35.0); Mean Corpuscular Volume 95.6 fL (81-100); NEUTROPHILS % (AUTO) 45.5 % (40-74)
[2017-01-05] MEDS: cloNIDine 0.1 mg Tablet PO SCH ×2 (07:32→20:48)
[2017-01-05] MEDS: Heparin 5,000 Unit/mL Inj SUBQ SCH ×2 (07:32→16:28)
[2017-01-05] MEDS: Multivit-Miner-Folic Acid-Iron Tablet PO SCH (07:47)
[2017-01-05 08:20] LABS: Magnesium 2.1 mg/dL (1.6-2.6); Phosphorus 3.7 mg/dL (2.5-4.9)
[2017-01-05 10:01] LABS: ERYTHROCYTE SEDIMENTATION RATE 2 mm/hr (0-32)
--- NOTE | 2017-01-05 11:49 | NUR ---
Rounds MD notified of bradycardia 50s with dips in 40s, no new orders. Pt denies symptoms. Will continue to monitor. Addendum: 01/05/17 at 1604 by KALLI SLATER RN Also notified MD in rounds of overnight episode of incontinence. Pt per welder 2nd shift took a pill that was not provided by hospital staff. Will monitor. Encouraged pt to send personal belongings with today.
--- NOTE | 2017-01-05 13:49 | NUR ---
Social Work- Initial Assessment/Multi Disciplinary Rounds Data: See Initial Assessment. Pt is a 41 year old female admitted 01/04/17 for Korsakoffs Syndrome per H&P. Pt's insurance is [employer] and PCP is Karuna Clarke MD. Pt's NOK is Michele Rogers [phone]. Pt's readmit risk score is not listed. Per multi-disciplinary rounds, pt continues to have hallucinations and the medical team is determining medical vs. psychiatric causes. Per rounds, no Social Work needs identified at this time other than initial assessment. SW met with pt and at bedside regarding discharge plan, SW role explained. Pt was oriented to location and self but not to the date. Per pt and , they reside in [place] with their family of five children ages 18, 16, 12, 9, and 7. Pt is independent at baseline. Pt has a history of etoh abuse and recently returned home from treatment on December 11. Pt has been sober for the last four months. Pt's admission tox screen is negative for alcohol. Per , pt completed inpt treatment at [facility] and IOP at [address] [place] [address] in [place]. Pt states that she takes Clonidine 0.2 PO BID for anxiety and med rec reflects this. Pt denies any history of inpatient or outpatient psychiatric treatment. confirms above information as well. Pt endorses visual hallucinations during this assessment, denies auditory hallucinations at this time. Pt denies any SI or HI at this time. Pt states that she would tell the RN or her if she felt suicidal or homicidal. Pt has no DPOA, information provided at bedside. SW provided phone number on whiteboard and encouraged pt or to call with any needs. Pending clinical course, pt is anticipated to discharge home with to transport via POV. Assessment: Pt who is independent at baseline. Plan: No CD needs identified. Pending clinical course, pt is anticipated to discharge home with to transport via POV. SW will continue to follow as discharge planning needs arise. LANDEN Mackey Addendum: 01/05/17 at 1353 by DEB RESENDIZ Amended: Links added.
--- NOTE | 2017-01-05 16:00 | NUR ---
MRI MD notified that prior attempt at MRI unsuccessful due to patient behaviors/hearing music and voices. Per MD, to give pt valium and attempt again. MRI notified. Pt amenable to plan.
--- NOTE | 2017-01-05 17:08 | NUR ---
Pt/family notified that topiramate ER 300mg must be obtained from home for dosing. to bring in. Addendum: 01/05/17 at 1834 by KALLI SLATER RN Mraiam unable to obtain refill prescription until 01/06/17
--- NOTE | 2017-01-05 17:24 | DRSVH ---
PROCEDURE: MRI BRAIN WITH AND WITHOUT CONTRAST ([id number]) INDICATIONS: Delerium,slurred speech TECHNIQUE: Noncontrast axial T1 spin echo, axial T2 fast spin echo, sagittal and axial FLAIR, coronal T2 fast sp in echo, axial gradient echo, axial diffusion and ADC through the brain. After the administration of contrast, axial and coronal 3D VIBE or T1 spin echo with fat saturation through the brain. COMPARISON: [facility], CT, CT ANGIO BRAIN AND NECK, 12/29/2016, 3:36. [facility], CT, CT BRAIN WO CON, 05/17/2016, 17:48. FINDINGS: Image quality: Partial degraded by motion artifact. CSF Spaces: Basal cisterns are patent. No extra-axial fluid collections. Ventricles are normal in size and shape. Brain: No midline shift. No intracranial bleeds or masses. No abnormal intracranial enhancement. The brainstem appears normal. Diffusion-weighted images demonstrate no acute ischemic insults. No c hronic ischemic insults. Normal intravascular flow voids are present. Skull and face: Calvarial marrow is normal in signal. Orbits appear normal. Sinuses: Sinuses and mastoids appear clear. IMPRESSION: No acute process. No recent infarct. No intracranial hemorrhage. No evidence of mass lesi on. Dictated by: Eli Malagon M.D. on 01/05/2017 at 17:21 Approved by: Eli Malagon M.D. on 01/05/2017 at 17:23
[2017-01-05] MEDS: buPROPion XL 300 mg ER24 Tablet PO SCH (17:37)
--- NOTE | 2017-01-05 17:39 | CONS ---
[address] [address] CONSULTATION REPORT PATIENT: OSMAR VARGAS : 1975 MR#: [id number] ADMIT: 01/04/2017 JOB ID: [id number] DATE OF SERVICE: 01/05/2017 IDENTIFICATION: The patient is a 41-year-old white female, currently living with her and her three children and his two children, ages ranging from 7-18. Her works for the [employer]. She is maintaining the home. The couple lives in [place]. REASON FOR ADMISSION: Altered mental status exam, altered mental status with auditory hallucinations and visual hallucinations. HISTORY OF PRESENT ILLNESS: I was asked to consult on the patient for evaluation and treatment of psychotic symptoms. I met with both she and her for a 60-minute session and reviewed course and records by [place]anyi Jaime. I reviewed the case with Dr. Negro and the ER physician, Dr. Uri Forde. Client's main issue is severe alcohol abuse. She has been to five different inpatient treatment centers. She reports sobriety since September 09, 2016. At her last inpatient rehab she was started on a combination of Wellbutrin, Effexor, Depakote, gabapentin, clonidine, and trazodone. Since discharge she has had complaints of visual hallucinations, tremors in her arms and legs, auditory hallucinations, weakness, clumsiness, slurred speech, and headaches. She has received different courses of Ativan and Valium, which have tended per her report because all the symptoms to resolve. She is currently out of Valium and is complaining of significant symptoms. She currently reports depressive symptoms of an irritable and agitated mood and some difficulty sleeping. She denied suicidal ideation, plan, or intent. She states all the above symptoms have gotten worse since she stopped drinking and stopped taking the Valium. She felt that all of her symptoms are improved with either alcohol or Valium. Her was concerned about use of a Valium taper. She has had a complete medical workup in the ER including a CT, a CBC, liver, electrolytes, thyroid, and an LP. Her valproic acid level was 62. PAST MEDICAL HISTORY: MEDICATIONS: Trazodone 200 h.s., Effexor ER 225 q.a.m., Wellbutrin ER 300 daily, Depakote DR 1000 h.s., gabapentin 600 b.i.d., clonidine 0.2 b.i.d. ALLERGIES: MORPHINE, METOCLOPRAMIDE. ILLNESSES: Hypertension and GERD. FAMILY MEDICAL HISTORY: Noncontributory. PAST PSYCHIATRIC HISTORY: Client has been to five different inpatient treatment units; first [facility] in [place], second a detox unit in [place], third a detox unit in [place], fourth [facility] in [place], fifth [facility] detox unit. Last inpatient unit was four months ago. SOCIAL HISTORY: Client was born and raised in [place], [place]. She graduated from high school. She attended a year of college. 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 HISTORY OF TRAUMA: Client denied drug and alcohol use. Client states she first started using alcohol at age 34 and used heavily from [age]. She has a history of blackouts and alcohol withdrawal tremors but denies delirium tremens history. LETHALITY: Client denies suicidal ideation or previous suicide attempts. RELATIONSHIP HISTORY: Client has been to her , Michele, for four years. 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 Active in the [employer]. LEGAL HISTORY: Client has a felony sentencing coming up in the next several months for stealing/embezzling money from a previous employer. PHYSICAL EXAMINATION: Vital signs within normal limits. LABORATORY: December 29, 2016: CT negative. CBC normal. Liver, electrolytes, thyroid normal except for mild increase in creatinine. LP January 04 normal. Valproic acid 62. Urine tox negative, except positive for benzodiazepines. MENTAL STATUS EXAMINATION: The client was neatly dressed, lying comfortably in a hospital bed. Her behavior was somewhat defiant and oppositional. Her attitude was evasive and irritable. Her mood was angry. Her affect was congruent with high intensity. Thought process: Client was able to relate a coherent history. Her thought process is generally logical and coherent. She is able to appreciate simple abstractions. No signs of psychosis. No neurovegetative signs of depression. Thought content: Themes of anger and frustration about the recovery process. She reports positive auditory hallucinations, full conversations she describes with people that are not there. She describes visual hallucinations frequently occurring at night where she sees people. She denied command auditory hallucinations. She denied suicidal ideation or homicidal ideation. Client is alert and oriented to person, place, and date. Immediate, short, and long-term memory are intact. Concentration was impaired. Insight and judgment were fair. Impulse control highly contained, yet rigid. Is having a difficult time handling impulses of anger and hunger. Reality testing: Client was able to distinguish between inner and outer reality. She knows that the hallucinations are not real. She knows that the visual hallucinations are not real, they are just very annoying to her. Competence to handle current stress: Her coping skills appear to be overwhelmed by her current stressors. IMPRESSION: The patient is a 41-year-old white female who has struggled with severe alcohol abuse for the past seven years. She is able to drink at times up to two fifths of vodka per day. She has had five different alcohol rehab units and is proud that she has been sober for the past four months. Despite her sobriety, I did not get the sense that she is actively involved in a 12-step program. Essentially she is on a "dry drunk." She was quite hostile throughout the interview to her . We talked at length about the different medications that she is using for depression (Effexor, Wellbutrin, and trazodone) and her mood stabilizers (Depakote, gabapentin, and clonidine). We talked about the relative risks, benefits, and side effects. We talked about the potential that the relatively high doses of Effexor and Wellbutrin may be contributing to visual hallucinations and auditory hallucinations. We also discussed that this could be an atypical withdrawal reaction. Client has good support in her and is an active member the [employer] [facility]. I believe the only thing she is missing is daily AA and a 12-step program. DIAGNOSIS: [place] I: 1. Alcohol abuse. 2. Atypical alcohol withdrawal. 3. Substance-induced depression. [place] II: Deferred. [place] III: 1. Alcohol withdrawal symptoms. 2. Hypertension. 3. Gastroesophageal reflux disease. [place] IV: Moderate. [place] V: Current Global Assessment of Functioning equal to 45. PLAN: Recommend client be given full workup to rule out potential medical causes of weakness, clumsiness, slurred speech, and visual hallucinations. The only test that has not been done is an MRI, which could be done on an outpatient basis. I would certainly encourage client to continue on with thiamine, B12, and a multivitamin to rule out potential deficiency causes of symptoms. The client's main course of treatment for long-term stability, however, will be active participations in a 12-step program. Would encourage 90 AA meetings in 90 days. Would recommend a trial off of either Wellbutrin or Effexor, as the combination of the trazodone, Effexor, and Wellbutrin may be contributing to the triad of auditory hallucinations, visual hallucinations, and tremulousness in arms and legs. Would consider tapering Effexor over the next two weeks to zero. Again, all of this can be done on an outpatient basis. If client's auditory hallucinations and vivid hallucinations continue to be problematic, could continue low-dose Haldol at 2.5 mg h.s. for 14-28 days and then discontinue. Thank you for a very interesting consult.
[2017-01-05] MEDS ORDERED: TOPIRAMATE 300 MG PO SCH (21:00)
--- NOTE | 2017-01-05 21:21 | PCM.PNMED ---
Subjective Date of Service Jan 05, 2017 Subjective The patient continues to complain of delusions and has been talking to people who are not in the room. She would like her home medications renewed. She has no others new or specific complaints. Exam Vital Signs Vital Sign - Last Date Time Temp Pulse Resp B/P Pulse Ox O2 Delivery O2 Flow Rate FiO2 01/05/17 20:44 37.1 59 17 126/81 98 Room Air Intake and Output 01/04/17 01/04/17 01/05/17 Cumulative From/Thru 15:00 23:00 07:00 01/04/17 12:33 - 01/05/17 06:12 Intake Total 1000 ml 1360 ml 2360 ml Output Total 1450 ml 1450 ml Balance 1000 ml -90 ml 910 ml Intake Oral 360 ml 360 ml IV Total 1000 ml 1000 ml 2000 ml Output Urine Total 1450 ml 1450 ml # Voids 1 1 Exam General: Patient is lying supine in no apparent distress she is easily irritated by her and is frequently will send him to stop answering some of my questions. HEENT: Head is atraumatic and normocephalic. Eyes: Pupils are equally round and reactive to light and accommodation. Extraocular muscles are intact. Sclera are white, anicteric. Subconjunctival mucosa is pink. Ears and nose are unremarkable. Oropharynx: There is no mucosal lesions, there is no thrush, there is no pharyngitis. Neck: Is supple, there are no nodes, or masses or tenderness. Chest: Is clear to auscultation and percussion. There are no rales, rhonchi, wheezes or rubs. Heart: Rate, rhythm is regular. There is no new murmur, rub or gallop. Abdomen: Good bowel sounds are present. Abdomen is soft, nontender, no organomegaly or masses were appreciated. Extremities: Are symmetrical and well perfused. There is no edema, there is no cellulitis, no rash. Neurologic: There are no focal neurological deficits. Cranial nerves II through XII are intact. There are no sensory or motor deficits. Psychiatric: Patients mood is easily irritable and frequently yells at her for answering some of my questions.. Genital: Deferred Rectal: Deferred Lab and Diagnostics Result Diagram: 01/05/17 0701/05/17 0720 Microbiology Cerebral Spinal Fluid Gram Stain Report: BERNIE GS (GRAM STAIN) Preliminary 01/04/17-1707 GRAM STAIN RESULT NO ORGANISMS SEEN NO POLYS SEEN X-Rays, CTs and MRIs PROCEDURE: MRI BRAIN WITH AND WITHOUT CONTRAST ([id number]) INDICATIONS: Delerium,slurred speech TECHNIQUE: Noncontrast axial T1 spin echo, axial T2 fast spin echo, sagittal and axial FLAIR, coronal T2 fast spin echo, axial gradient echo, axial diffusion and ADC through the brain. After the administration of contrast, axial and coronal 3D VIBE or T1 spin echo with fat saturation through the brain. COMPARISON: [facility], CT, CT ANGIO BRAIN AND NECK, 12/29/2016, 3: 36. [facility], CT, CT BRAIN WO CON, 05/17/2016, 17:48. FINDINGS: Image quality: Partial degraded by motion artifact. CSF Spaces: Basal cisterns are patent. No extra-axial fluid collections. Ventricles are normal in size and shape. Brain: No midline shift. No intracranial bleeds or masses. No abnormal intracranial enhancement. The brainstem appears normal. Diffusion-weighted images demonstrate no acute ischemic insults. No chronic ischemic insults. Normal intravascular flow voids are present. Skull and face: Calvarial marrow is normal in signal. Orbits appear normal. Sinuses: Sinuses and mastoids appear clear. IMPRESSION: No acute process. No recent infarct. No intracranial hemorrhage. No evidence of mass lesion. Dictated by: Eli Malagon M.D. on 01/05/2017 at 17:21 Approved by: Eli Malagon M.D. on 01/05/2017 at 17:23 Assessment & Plan Patient is a 41y/o Female with a past medical history of HTN, GERD, and EtOH Abuse presenting to the ED with Headache, recent history of visual hallucinations, and tremors. Admitted to medicine for overnight observation and psychiatric consult. 1. Altered Mental Status- chronicity undetermined, but present on admission -Delerium vs. Thiamine Deficiency vs Wernicke Korsakoff vs a side effect of multiple medications that she has been prescribed - Patient w/ h/o EtOH abuse with recent h/o visual hallucinations, tremors, and slurred speech with inappropriate word usage - Given Thiamine 100mg in ED - Given Haloperidol IM 2.5mg in ED - Given Lorazepam 2mg in ED - Ativan 2mg IV PRN for agitation, tremors - Psychiatry was consulted and their time and expertise is greatly appreciated. I spoke with Dr. Andrew and his impression and plan is as follows : "DIAGNOSIS: [place] I: 1. Alcohol abuse. 2. Atypical alcohol withdrawal. 3. Substance-induced depression. [place] II: Deferred. [place] III: 1. Alcohol withdrawal symptoms. 2. Hypertension. 3. Gastroesophageal reflux disease. [place] IV: Moderate. [place] V: Current Global Assessment of Functioning equal to 45. PLAN: Recommend client be given full workup to rule out potential medical causes of weakness, clumsiness, slurred speech, and visual hallucinations. The only test that has not been done is an MRI, which could be done on an outpatient basis. I would certainly encourage client to continue on with thiamine, B12, and a multivitamin to rule out potential deficiency causes of symptoms. The client's main course of treatment for long-term stability, however, will be active participations in a 12-step program. Would encourage 90 AA meetings in 90 days. Would recommend a trial off of either Wellbutrin or Effexor, as the combination of the trazodone, Effexor, and Wellbutrin may be contributing to the triad of auditory hallucinations, visual hallucinations, and tremulousness in arms and legs. Would consider tapering Effexor over the next two weeks to zero. Again, all of this can be done on an outpatient basis. If client's auditory hallucinations and vivid hallucinations continue to be problematic, could continue low-dose Haldol at 2.5 mg h.s. for 14-28 days and then discontinue." 2. Headache - LP r/o meningitis, Gullian Weott, Subarachnoid Hemorrhage - Recent CT study on 12/29/16 showed no acute changes, an MRI of the brain done today was unremarkable. - Current headache is 4/10 - Acetaminophen 650mg PO Q4 PRN Pain 3. Mildly elevated Creatinine, chronicity unknown - Patient had an increase in serum creatinine as from baseline, but does not meet the criteria for ABDIRASHID. Likely due to patient dehydration. - Monitor, CMP in the morning 4. H/o EtOH abuse - Patient reports last drink 09/09/16, however unreliable historian. - DT prophylaxis, Ativan as noted above 5. H/o HTN - Patient is on Clonidine 0.2mg PO BID 6. H/o GERD -Maalox 30mL PO Q6H PRN Disposition: We will restart the patient's home medications except for her Effexor and if she remains stable we will likely discharge home in a.m. to be managed as an outpatient. Maintenance: PRN, antiemetics, fever, pain -Anticoagulation - Heparin subQ 5,000 units - Diet regular - Patient is FULL CODE Pain Evaluation: Adequate Pain Control GI Prophylaxis: Not indicated (Patient Eating) VTE Prophylaxis: Sub-Q Heparin (Unfractionated) Resuscitation Status: CPR: Attempt Resuscitation (Patient is FULL CODE) Lizandro Negro MD Jan 05, 2017 21:21
[2017-01-06] MEDS: Heparin 5,000 Unit/mL Inj SUBQ SCH ×3 (00:36→16:16)
[2017-01-06 00:39] VITALS: BP 96/66; PULSE 67; RESP 17; O2SAT 98
[2017-01-06] MEDS: Ondansetron 2 mg/mL 2 mL Inj IVPUSH PRN ×4 (00:54→16:16)
--- NOTE | 2017-01-06 05:58 | NUR ---
Shift Note Assumed pt care at 1900, pt reports visual hallucinations when waking up, then clears after few minutes, pt alert/oriented x4 throughout night, had 1 episode on nausea, relieved by PRN Zofran, call light in reach at all times.
[2017-01-06 06:22] VITALS: BP 98/65; PULSE 67; RESP 17; O2SAT 97
[2017-01-06 07:00] LABS: BASOPHILS % (AUTO) 0.3 % (0-3); EOSINOPHILS % (AUTO) 6.3 % (0-5); Mean Corpuscular Hemoglobin 33.1 pg (27.0-35.0); Mean Corpuscular Volume 96.4 fL (81-100); NEUTROPHILS % (AUTO) 39.7 % (40-74); Platelet Count 230 bil/L (150-400)
[2017-01-06 07:38] LABS: Magnesium 1.9 mg/dL (1.6-2.6)
[2017-01-06] MEDS: Multivit-Miner-Folic Acid-Iron Tablet PO SCH (07:57)
[2017-01-06] MEDS: buPROPion XL 300 mg ER24 Tablet PO SCH (07:57)
[2017-01-06 08:00] VITALS: BP 84/56; PULSE 97; RESP 16; O2SAT 97
--- NOTE | 2017-01-06 08:00 | NUR ---
BP BP 84/56, clonidine held (given for anxiety) Paged MD for parameters.
[2017-01-06] MEDS ORDERED: 0.9% Sodium Chloride 500 ML IV ONE (09:20)
--- NOTE | 2017-01-06 09:43 | NUR ---
BP BP rechecked 86/[address] Negro paged with results, and asked about parameters for pt to receive Clonidine. ordered 500ml bolus NS. Will re check pressure post bolus. Will administer Clonidine if pressure has come up.
[2017-01-06 10:09] VITALS: PULSE 70
[2017-01-06 10:21] VITALS: BP 112/68; PULSE 72
[2017-01-06] MEDS: cloNIDine 0.1 mg Tablet PO SCH (10:29)
--- NOTE | 2017-01-06 11:23 | PCM.DIMED ---
Discharge Instructions Date of Service Jan 06, 2017 Dates of Hospitalization Jan 04, 2017 at 18:53 Discharge Diagnosis Discharge Diagnosis Altered Mental Status/Adverse Drug Reaction Medication Instructions Additional med instructions Discontinue Effexor Diet Discharge Diet: No restrictions Activity Discharge Activity: No restrictions Call your provider Call your provider for: Fever or Chills, Shortness of breath, Bleeding, Chest pain, Vomitting, Excessive diarrhea, Weakness (unilateral), Other Patient Instructions Follow-up Provider: Karuna Clarke MD Follow-up with PCP in: 1 week Provider: Hay Howard MD Follow-up in: 2 weeks (For endocrinology evaluation.) Lizandro Negro MD Jan 06, 2017 11:23
[2017-01-06] MEDS ORDERED: PREN1TAB25 PO (11:27)
[2017-01-06] MEDS ORDERED: Thiamine PO (11:27)
[2017-01-06] MEDS ORDERED: LEVO75TA4 PO (11:27)
[2017-01-06] MEDS ORDERED: diphenhydrAMINE 25 mg Capsule PO ONE (13:25)
--- NOTE | 2017-01-06 15:12 | NUR ---
Arian Barcode ripped would not scan. Manually entered.
--- NOTE | 2017-01-06 17:39 | NUR ---
Nausea Pt states nausea is extreme. 4mg of Zofran not effective. Pt states pn is aching all over. Pt given 650mg Tylenol. Pt states pn worsened since Tylenol administered. Pg Dr Negro updated situation. is on way to case picker from [place]. Previous ETA was 1600, still has not arrived. Dr Negro to order meds.
[2017-01-06] MEDS ORDERED: Promethazine Inj 12.5 MG in Dextrose 5%-Pha MIX 50 ML IV ONE (17:50)
[2017-01-06 17:57] VITALS: BP_SYST 131; BP_SYST 144; BP_DIAS 76; BP_DIAS 85; PULSE 67; PULSE 72; RESP 16; O2SAT 99
--- NOTE | 2017-01-06 18:43 | NUR ---
Discharge Pt A&O x 4. arrived at bedside. D/C instructions given, questions answered. IV DC'd, catheter intact. Pt given 100mg Effexor prior to d/c. Steady gait. All belongings accounted for. Pt taken to car for dc. Safe transfer.
--- NOTE | 2017-01-06 22:32 | PCM.DC.MED ---
Discharge Summary Date of Service Jan 06, 2017 Dates of Hospitalization Date of Hospital Admission Jan 04, 2017 at 18:53 Date of Discharge: Jan 06, 2017 Providers: Admitting Physician: Diamond Ritchie DO Primary Care Physician: Karuna Clarke MD Attending Physician: Lizandro Negro MD Diagnosis at Time of Discharge Diagnosis at Time of Discharge Altered Mental Status/Adverse Drug Reaction Procedures XRay, CTs & MRIs PROCEDURE: MRI BRAIN WITH AND WITHOUT CONTRAST ([id number]) INDICATIONS: Delerium,slurred speech TECHNIQUE: Noncontrast axial T1 spin echo, axial T2 fast spin echo, sagittal and axial FLAIR, coronal T2 fast spin echo, axial gradient echo, axial diffusion and ADC through the brain. After the administration of contrast, axial and coronal 3D VIBE or T1 spin echo with fat saturation through the brain. COMPARISON: Formerly [facility], CT, CT ANGIO BRAIN AND NECK, 12/29/2016, 3: 36. Formerly [facility], CT, CT BRAIN WO CON, 05/17/2016, 17:48. FINDINGS: Image quality: Partial degraded by motion artifact. CSF Spaces: Basal cisterns are patent. No extra-axial fluid collections. Ventricles are normal in size and shape. Brain: No midline shift. No intracranial bleeds or masses. No abnormal intracranial enhancement. The brainstem appears normal. Diffusion-weighted images demonstrate no acute ischemic insults. No chronic ischemic insults. Normal intravascular flow voids are present. Skull and face: Calvarial marrow is normal in signal. Orbits appear normal. Sinuses: Sinuses and mastoids appear clear. IMPRESSION: No acute process. No recent infarct. No intracranial hemorrhage. No evidence of mass lesion. Dictated by: Eli Malagon M.D. on 01/05/2017 at 17:21 Approved by: Eli Malagon M.D. on 01/05/2017 at 17:23 Brief History Patient is a 41y/o Female with a past medical history of HTN, GERD, and EtOH Abuse presenting to the ED with Headache, recent history of visual hallucinations, and tremors. Pt states that she began to feel weakness onset 2 weeks ago with lack of energy as well as falling asleep randomly throughout the day. One week ago patient began to notice tremors in her hands and arms, and would have episodes of clumsiness in her hands leading her to drop things. She notes that Ativan helps control her tremors. She reports a constant headache that is vague in quality that is approximately 7/10 and does not wax or wane. She has had multiple episodes of visual hallucinations where she sees shadow people in her peripheral vision, but they would disappear once she looked in their direction. Twice she has reported having full conversations with a person , only to realize she is the only person in the room and they have disappeared. She notes over these past two weeks she has had increased slurring in her speech, and the inability to find the correct words to say. Patient has a history of alcohol abuse with vodka that went on for "years", and reports her last drink was 09/09/16. When asked if she has had any slip up in her sobriety, patient repeatedly says she has not. She denies any street drug, or non prescribed drug abuse. In the ED, patient was given Haloperidol 2.5mg, Lorazepam 2mg, and Thiamine 100mg due to h/o EtOH abuse and recent hallucinations. Lumbar puncture performed in ED revealed no evidence of Subarachnoid Hemorrhage, Encephalitis, Meningitis, or Guillian-Dayton. The patient was admitted to the hospitalist service for overnight observation and psychiatric consult tomorrow morning. Hospital Course Patient is a 41y/o Female with a past medical history of HTN, GERD, and EtOH Abuse presenting to the ED with Headache, recent history of visual hallucinations, and tremors. Admitted to medicine for overnight observation and psychiatric consult. # Altered Mental Status- chronicity undetermined, but present on admission -Delerium vs. Thiamine Deficiency vs Wernicke Korsakoff vs a side effect of multiple medications that she has been prescribed - Patient w/ h/o EtOH abuse with recent h/o visual hallucinations, tremors, and slurred speech with inappropriate word usage - Given Thiamine 100mg in ED - Given Haloperidol IM 2.5mg in ED - Given Lorazepam 2mg in ED - Ativan 2mg IV PRN for agitation, tremors - Psychiatry was consulted and their time and expertise is greatly appreciated. I spoke with Dr. Andrew and his impression and plan is as follows : "DIAGNOSIS: Helix I: 1. Alcohol abuse. 2. Atypical alcohol withdrawal. 3. Substance-induced depression. Helix II: Deferred. Helix III: 1. Alcohol withdrawal symptoms. 2. Hypertension. 3. Gastroesophageal reflux disease. Helix IV: Moderate. Helix V: Current Global Assessment of Functioning equal to 45. PLAN: Recommend client be given full workup to rule out potential medical causes of weakness, clumsiness, slurred speech, and visual hallucinations. The only test that has not been done is an MRI, which could be done on an outpatient basis. I would certainly encourage client to continue on with thiamine, B12, and a multivitamin to rule out potential deficiency causes of symptoms. The client's main course of treatment for long-term stability, however, will be active participations in a 12-step program. Would encourage 90 AA meetings in 90 days. Would recommend a trial off of either Wellbutrin or Effexor, as the combination of the trazodone, Effexor, and Wellbutrin may be contributing to the triad of auditory hallucinations, visual hallucinations, and tremulousness in arms and legs. Would consider tapering Effexor over the next two weeks to zero. Again, all of this can be done on an outpatient basis. If client's auditory hallucinations and vivid hallucinations continue to be problematic, could continue low-dose Haldol at 2.5 mg h.s. for 14-28 days and then discontinue." # Hypothyroidism, present at the time of admission. Active - We will start levothyroxine 75 g by mouth daily - Recommend follow-up with Hay Howard of endocrinology - Suspect hypothyroidism may be playing a part in her above mental status problems. # Headache - LP r/o meningitis, Gullian Dayton, Subarachnoid Hemorrhage - Recent CT study on 12/29/16 showed no acute changes, an MRI of the brain done today was unremarkable. - Current headache is /10 - Acetaminophen 650mg PO Q4 PRN Pain # Mildly elevated Creatinine, chronicity unknown - Patient had an increase in serum creatinine as from baseline, but does not meet the criteria for ABDIRASHID. Likely due to patient dehydration. - Monitor, CMP in the morning # H/o EtOH abuse - Patient reports last drink 09/09/16, however unreliable historian. - DT prophylaxis, Ativan as noted above # H/o HTN - Patient is on Clonidine 0.2mg PO BID # H/o GERD -Maalox 30mL PO Q6H PRN Disposition: As the patient is much calmer and more sensible and essentially back to her baseline mental status she will be discharged home today as suggested by psychiatry. Maintenance: PRN, antiemetics, fever, pain -Anticoagulation - Heparin subQ 5,000 units - Diet regular - Patient is FULL CODE Exam Vital Signs (Last) Date Time Temp Pulse Resp B/P Pulse Ox O2 Delivery O2 Flow Rate FiO2 01/06/17 17:57 36.8 67 16 131/85 99 Room Air Exam General: Patient is like a different person today with normal speech pattern, normal behavior mannerisms and much calmer. HEENT: Head is atraumatic and normocephalic. Eyes: Pupils are equally round and reactive to light and accommodation. Extraocular muscles are intact. Sclera are white, anicteric. Subconjunctival mucosa is pink. Ears and nose are unremarkable. Oropharynx: There is no mucosal lesions, there is no thrush, there is no pharyngitis. Neck: Is supple, there are no nodes, or masses or tenderness. Chest: Is clear to auscultation and percussion. There are no rales, rhonchi, wheezes or rubs. Heart: Rate, rhythm is regular. There is no new murmur, rub or gallop. Abdomen: Good bowel sounds are present. Abdomen is soft, nontender, no organomegaly or masses were appreciated. Extremities: Are symmetrical and well perfused. There is no edema, there is no cellulitis, no rash. Neurologic: There are no focal neurological deficits. Cranial nerves II through XII are intact. There are no sensory or motor deficits. Patient speech pattern and thought processes are much more confluent. He is much more sensible and much calmer. Psychiatric: Patient is much more sensible and calmer today. She exhibits more appropriate behavior and normal mannerisms. Genital: Deferred Rectal: Deferred Test 01/04/17 14:08 01/04/17 15:45 01/04/17 18:00 01/05/17 07:20 Total Creatine Kinase 44U/L (21-215) Salicylates Level < 3.0ug/mL (30-250) Acetaminophen Level < 15.0ug/mL Rx (10-25) Valproic Acid (Depakene) Level 62ug/mL (50-125) Alcohols < 10mg/dL (0-10) CSF Appearance Clear (CLEAR) CSF Color Colorless (COLORLESS) CSF WBC 1/mm3 (0-5) CSF RBC 0/mm3 CSF Mononuclear WBCs % CSF Polynuclear WBCs % CSF Other Cells CSF Glucose 69mg/dL (45-90) CSF Total Protein 44mg/dL (15-45) Urine Color Straw (YELLOW) Urine Appearance Clear (CLEAR,HAZY) Urine pH 6.5 (5.0-8.0) Urine Specific [place] <1.005 (1.003-1.035) Urine Protein Negativemg/dL (NEG,TRACE) Urine Glucose (UA) Negativemg/dL (NEGATIVE) Urine Ketones Negativemg/dL (NEGATIVE) Urine Occult Blood Negative (NEGATIVE) Urine Nitrite Negative (NEGATIVE) Urine Bilirubin Negative (NEGATIVE) Urine Urobilinogen Normalmg/dL (NORMAL) Urine Leukocyte Esterase Negative (NEGATIVE) Urine RBC 0-2/hpf (0-2) Urine WBC 0-5/hpf (0-5) Urine Epithelial Cells Few/hpf (NONE-MOD) Urine Crystals None seen (NONE SEEN) Urine Bacteria None/hpf (NONE-FEW) Urine Hyaline Casts None/lpf (NONE) Urine Granular Casts None seen (NONE SEEN) Urine Waxy Casts None seen (NONE SEEN) Urine Red Blood Cell Casts None seen (NONE SEEN) Urine White Blood Cell Casts None seen (NONE SEEN) Urine Mucus None seen (None Seen) Urine Trichomonas None seen (NONE SEEN) Urine Yeast None (NONE SEEN) Urinalysis Comment None Urine Culture Reflexed Not indicated Band Neutrophils % % (1-5) Erythrocyte Sedimentation Rate 2mm/hr (0-32) Hematology Comments Phosphorus Level 3.7mg/dL (2.5-4.9) C-Reactive Protein 0.1mg/dL (0.0-0.5) Thyroid Stimulating Hormone (TSH) 8.950uIU/mL (0.450-4.500) Free Thyroxine 0.47ng/dL (0.82-1.77) Test 01/06/17 06:05 White Blood Count 6.6th/mm3 (3.8-10.1) Red Blood Count 3.66mil/mm3 (3.90-5.20) Hemoglobin 12.1g/dL (12.0-15.6) Hematocrit 35.3% (35.0-46.0) Mean Corpuscular Volume 96.4fL (81-100) Mean Corpuscular Hemoglobin 33.1pg (27.0-35.0) Mean Corpuscular Hemoglobin Concent 34.3% (32.0-37.0) Red Cell Distribution Width 11.9% (12.3-15.4) Platelet Count 230bil/L (150-400) Neutrophils (%) (Auto) 39.7% (40-74) Lymphocytes (%) (Auto) 42.5% (14-46) Monocytes (%) (Auto) 11.0% (4-12) Eosinophils (%) (Auto) 6.3% (0-5) Basophils (%) (Auto) 0.3% (0-3) Sodium Level 139mEq/L (134-144) Potassium Level 4.2mEq/L (3.5-5.2) Chloride Level 104mEq/L (97-108) Carbon Dioxide Level 20mmol/L (18-29) Blood Urea Nitrogen 14mg/dL (6-24) Creatinine 1.10mg/dL (0.57-1.00) Estimat Glomerular Filtration Rate 78mL/min (>59) Glucose Level 113mg/dL (60-99) Calcium Level 8.6mg/dL (8.5-10.1) Magnesium Level 1.9mg/dL (1.6-2.6) Total Bilirubin 0.2mg/dL (0.0-1.2) Aspartate Amino Transf (AST/SGOT) 13U/L (0-50) Alanine Aminotransferase (ALT/SGPT) 11U/L (0-32) Alkaline Phosphatase 51U/L (25-150) Total Protein 6.1g/dL (6.4-8.4) Albumin 3.7g/dL (3.4-5.0) Microbiology Results Cerebral Spinal Fluid Gram Stain Report: BERNIE GS (GRAM STAIN) Preliminary 01/04/17-170 GRAM STAIN RESULT NO ORGANISMS SEEN NO POLYS SEEN Discharge Medications Discharge Medications ([Thiamine]) 100 MG TABLET 100 MG PO DAILY Prescribed by: KATHRYN NEGRO MD Bupropion ER (Bupropion ER) 300 Mg Tab.er.24h 300 MG PO QAM (Reported) Clonidine (Clonidine) 0.2 Mg Tablet 0.2 MG PO BID (Reported) Divalproex DR (Depakote DR) 500 Mg Tablet 1,000 MG PO HS (Reported) Swallowed whole without chewing to avoid local irritation of the mouth and throat. Gabapentin (Gabapentin) 600 Mg Tablet 600 MG PO BID (Reported) Levothyroxine (Levothyroxine) 75 Mcg Tablet 75 MCG PO DAILYAC Prescribed by: KATHRYN NEGRO MD Vit#96/Ferrous Fum/FA ( Tablet) 1 Each Tablet 1 TABLET PO DAILY Prescribed by: KATHRYN NEGRO MD Ranitidine (Ranitidine) 150 Mg Capsule 150 MG PO BID (Reported) Topiramate ER (Topiramate ER) 150 Mg Capsule 300 MG PO HS (Reported) Trazodone (Trazodone) 100 Mg Tablet 200 MG PO HS (Reported) As needed Acetaminophen (Acetaminophen) 325 Mg Tablet 650 MG PO DAILY PRN PRN For Headache (Reported) Ibuprofen (Ibuprofen) 200 Mg Capsule 400 MG PO DAILY PRN PRN For Headache ( Reported) Prochlorperazine Maleate (Prochlorperazine) 10 Mg Tablet 10 MG PO Q8 PRN PRN For Nausea/Vomiting (Reported) Sumatriptan Succinate (Sumatriptan Succinate) 50 Mg Tablet 50 MG PO ASDIRECTED PRN PRN For Headache (Reported) TAKE 1 TABLET AT ONSET OF MIGRAINE. MAY REPEAT IN 2 HRS IF NEEDED. MAX 2 DOSES/24 HRS Additional med instructions Discontinue Effexor Followup Plan Disposition: Patient is not a threat to herself or others and is stable, she will be discharged home in the care of her . Discharge Diet: No restrictions Discharge Activity: No restrictions Follow-up Provider: Karuna Clarke MD Follow-up with PCP in: 1 week Provider: Hya Howard MD Follow-up in: 2 weeks (For endocrinology evaluation.) Time spent Time spent on discharging this patient was greater than 35 minutes, over half of which was involved in counseling and coordination of care. Lizandro Negro MD Jan 06, 2017 22:31
== END 2017-01-06 18:40 | disposition home or self-care (01) ==
LOC: SED 12:27 → MOC 18:53
PROVIDERS: ADMIT Internal Medicine; ATTEND Internal Medicine
DX: F10.239 Alcohol dependence with withdrawal, unspecified (principal); R41.82 Altered mental status, unspecified; E03.9 Hypothyroidism, unspecified; R51 Headache; R94.4 Abnormal results of kidney function studies; F04 Amnestic disorder due to known physiological condition; R44.3 Hallucinations, unspecified; I10 Essential (primary) hypertension; K21.9 Gastro-esophageal reflux disease without esophagitis; F41.9 Anxiety disorder, unspecified; D64.9 Anemia, unspecified; F17.210 Nicotine dependence, cigarettes, uncomplicated; Z88.8 Allergy status to other drugs, medicaments and biological substances; Z90.710 Acquired absence of both cervix and uterus
CPT/HCPCS: 36415; 62270; 70553; 80053; 80164; 81000; 81002; 81025; 82550; 82607; 82945; 83735; 84100; 84155; 84439; 84443; 85025; 85027; 85651; 86140; 87070; 87205; 89051; 96361; 96365; 96366; 96375; 96376; 99285; A9585; G0378; G0480; J1630; J1644; J2060; J2405; J3475; J7030; J7040; Q0164

== ENCOUNTER 2017-01-10 21:29 | Emergency (ER) | payer OTHER ==
[~2017-01-10] VITALS: Ht 160 cm; Wt 70.5 kg
[~2017-01-10 21:29] MED LIST changes: +ACET325T51 PO; +BUPR300T52 PO; -CLON-399 PO; +CLON0.2T PO; +DEP500A PO; +GABA600T2 PO; +IBUP200C PO; +LEVO75TA4 PO; -LORA-303 PO; -LORA1TAB PO; +PREN1TAB25 PO; +PROC10TA PO; +RANI150C4 PO; +SUMA50TA2 PO; +TOPI150C4 PO; +TRAZ-118 PO; +Thiamine PO
[2017-01-10 21:45] VITALS: BP 117/71; PULSE 77; RESP 16; O2SAT 100
--- NOTE | 2017-01-10 23:58 | ED.REPORT ---
HPI-General Illness Date of Service Jan 10, 2017 ED Provider: Maverick Gutiérrez Tricia MOTT Pt is a 41 y/o female w/ a hx of alcohol abuse, Korsakoff syndrome, presenting to the ED with multiple vague complaints. 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 During admission, the patient had a psychiatric consultation and her presentation was thought to be most likely caused by alcohol abuse. The patient states she has been experiencing ongoing neurological/psychiatric symptoms such as auditory and visual hallucinations and delirium which have not changed since her discharge and then after her discharge she began to experience dysphagia which she states causes throat pain, shortness of breath, and choking episodes. She is also complaining of left ear pain. The patient was officially diagnosed with hypothyroid today and was recently started on Levothyroxine. She states she has no history of diagnosed bipolar disorder. Nursing Notes Stated Complaint: STROKE LIKE SYMPTOMS WORSE Chief Complaint: General Complaint Nursing Notes Reviewed: Yes Allergies: Coded Allergies: morphine (Verified Allergy, Intermediate, Rash, 01/04/17) CAN TOLERATE OXYCODONE PER PATIENT 10/27/15 VLO metoclopramide (Verified Adverse Reaction, Severe, EPS, HALLUCINATIONS, 01/04/17) Scheduled ([Thiamine]) 100 MG TABLET 100 MG PO DAILY Bupropion ER (Bupropion ER) 300 Mg Tab.er.24h 300 MG PO QAM Clonidine (Clonidine) 0.2 Mg Tablet 0.2 MG PO BID Divalproex DR (Depakote DR) 500 Mg Tablet 1,000 MG PO HS Swallowed whole without chewing to avoid local irritation of the mouth and throat. Gabapentin (Gabapentin) 600 Mg Tablet 600 MG PO BID Levothyroxine (Levothyroxine) 75 Mcg Tablet 75 MCG PO DAILYAC Vit#96/Ferrous Fum/FA ( Tablet) 1 Each Tablet 1 TABLET PO DAILY Ranitidine (Ranitidine) 150 Mg Capsule 150 MG PO BID Topiramate ER (Topiramate ER) 150 Mg Capsule 300 MG PO HS Trazodone (Trazodone) 100 Mg Tablet 200 MG PO HS Scheduled PRN Acetaminophen (Acetaminophen) 325 Mg Tablet 650 MG PO DAILY PRN PRN For Headache Ibuprofen (Ibuprofen) 200 Mg Capsule 400 MG PO DAILY PRN PRN For Headache Prochlorperazine Maleate (Prochlorperazine) 10 Mg Tablet 10 MG PO Q8 PRN PRN For Nausea/Vomiting Sumatriptan Succinate (Sumatriptan Succinate) 50 Mg Tablet 50 MG PO ASDIRECTED PRN PRN For Headache TAKE 1 TABLET AT ONSET OF MIGRAINE. MAY REPEAT IN 2 HRS IF NEEDED. MAX 2 DOSES/24 HRS General Time Seen by MD: 23:57 Chief Complaint Multip medical complaints Hx Obtained From: Patient Arrived By: Walk-in Sudden in Onset?: No Onset Occurred: More than a week ago... 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 Anxiety Depression Hypertension GERD Kidney Stone UTI Alcohol withdrawal- Acute visual hallucinations and altered mental status, Echogenic liver Chronic anemia Past Surgical History Breast implants 12/27/2015, Rectocele and cystocele Abdominoplasty Reports: Hysterectomy Family History non-contributory Smoking History Current Some Day Smoker Social History Severe alcohol abuse Drug Use: Meth Other Social History: Good social support, , Local resident Occupation works 2 jobs has 5 children Ambulatory Status Independent Review of Systems Full Review of Systems Ears / Nose / Throat: Reports: Earache left Neurologic: Reports: Confusion, Denies: Focal weakness, Numbness Psychiatric: Reports: Change mental status, Hallucinations, auditory, Hallucinations, visual Complete sys rev & neg: except as marked. Physical Exam Vital Signs Vital Signs Date Time Temp Pulse Resp B/P Pulse Ox O2 Delivery O2 Flow Rate FiO2 01/11/17 03:50 74 18 109/62 98 Room Air 01/11/17 01:00 78 20 115/65 Room Air 01/10/17 21:45 36.5 77 16 117/71 100 Room Air Initial VS: Reviewed, Vital signs normal Head / Eyes: Atraumatic, Normocephalic, PERRL Neck: Supple, Full range of motion Respiratory: Breath sounds normal, Clear to auscultation, No respiratory distress Cardiovascular: Regular rate & rhythm, Heart sounds normal, Intact distal pulses Abdomen / GI: Soft, Non-tender, No guarding, No rebound, No distention Extremities: Vascular intact, Neuro intact, No swelling, No tenderness Skin: Warm, Dry, No cyanosis General/Constitutional: Awake, Alert, No acute distress, Cooperative, Not toxic appearing ENT: Atraumatic, Airway patent, Mucous membranes moist, Pharynx NL, Tympanic membs NL Neurologic: Oriented X3, Speech NL, No motor deficits, No sensory deficits, Memory NL Psychiatric: Affect NL, Not suicidal, Not homicidal, No hallucinations Abnormal Thinking / Perception: Positive: Tangential thinking Disorganized Interpretation & Diagnostics Lab Results Interpretation Result Diagram: 01/11/17 0120 01/11/17 0120 Test 01/11/17 01:20 01/11/17 14:00 White Blood Count 6.8th/mm3 (3.8-10.1) Red Blood Count 3.53mil/mm3 (3.90-5.20) Hemoglobin 11.6g/dL (12.0-15.6) Hematocrit 35.1% (35.0-46.0) Mean Corpuscular Volume 99.4fL (81-100) Mean Corpuscular Hemoglobin 32.9pg (27.0-35.0) Mean Corpuscular Hemoglobin Concent 33.0% (32.0-37.0) Red Cell Distribution Width 12.2% (12.3-15.4) Platelet Count 227bil/L (150-400) Neutrophils (%) (Auto) 41.0% (40-74) Lymphocytes (%) (Auto) 37.2% (14-46) Monocytes (%) (Auto) 13.9% (4-12) Eosinophils (%) (Auto) 7.2% (0-5) Basophils (%) (Auto) 0.4% (0-3) Sodium Level 135mEq/L (134-144) Potassium Level 4.1mEq/L (3.5-5.2) Chloride Level 99mEq/L (97-108) Carbon Dioxide Level 20mmol/L (18-29) Blood Urea Nitrogen 20mg/dL (6-24) Creatinine 1.07mg/dL (0.57-1.00) Estimat Glomerular Filtration Rate 81mL/min (>59) Glucose Level 96mg/dL (60-99) Calcium Level 8.5mg/dL (8.5-10.1) Magnesium Level 2.0mg/dL (1.6-2.6) Total Bilirubin 0.2mg/dL (0.0-1.2) Aspartate Amino Transf (AST/SGOT) 13U/L (0-50) Alanine Aminotransferase (ALT/SGPT) 18U/L (0-32) Alkaline Phosphatase 49U/L (25-150) Total Protein 6.9g/dL (6.4-8.4) Albumin 4.1g/dL (3.4-5.0) Thyroid Stimulating Hormone (TSH) 4.860uIU/mL (0.450-4.500) Hold [place] Top Tube Received (Received) Hold Urine Received (Received) Re-Eval/Medical Decision Med Decision/Clinical Course pts syptoms resolved with haldol and ativan. she will f/u with pcp regarding her mildly elevated tsh to have levothyroxine adjusted Source of Hx: Old records Time of Eval: 03:05 Re-Evaluation/Progress Note: Pt rechecked. Discussed normal imaging findings. Informed pt of plan for treatment. Pt understands and agrees with plan for treatment. F/U instructions and RTER warnings given. All questions addressed. Counseled Regarding: Diagnosis, Lab results Discharge & Departure Primary Impression: Hypothyroidism Hypothyroidism type: unspecified Qualified Code: E03.9 - Hypothyroidism, unspecified Disposition: Home Discharge Condition All VS Reviewed: Yes Condition: Stable Additional Instructions: There are no dangerous findings on your lab work. Your thyroid medication needs to be adjusted which can be done by her primary care provider. I am glad that you are feeling better after receiving Haldol and Ativan. Continue your home medications as prescribed. Follow-up with your PCP next week. Return to the ER for new or worsening symptoms. Referrals: Karuna Clarke MD (PCP) Rona Attestation Portions of this note were transcribed by Dain Herr. I, Dr. Gutiérrez personally performed the history, physical exam and medical decision-making; I reviewed and confirmed the accuracy of the information in the transcribed note. Signed by Rona Tate, 01/11/17 - 0030 copies to: Karuna Clarke MD, Gary R DO Jan 10, 2017 23:58 DAIN HERR Jan 11, 2017 00:29
[2017-01-11] MEDS ORDERED: LORazepam 1 mg Tablet PO ONE (00:45)
[2017-01-11 01:00] VITALS: BP 115/65; PULSE 78; RESP 20
[2017-01-11 01:34] LABS: BASOPHILS % (AUTO) 0.4 % (0-3); EOSINOPHILS % (AUTO) 7.2 % (0-5); MONOCYTES % (AUTO) 13.9 % (4-12); Mean Corpuscular Hemoglobin 32.9 pg (27.0-35.0); Mean Corpuscular Volume 99.4 fL (81-100); Platelet Count 227 bil/L (150-400)
[2017-01-11 03:50] VITALS: BP 109/62; PULSE 74; RESP 18; O2SAT 98
== END 2017-01-11 03:51 | disposition home or self-care (01) ==
LOC: SED 21:29
DX: E03.9 Hypothyroidism, unspecified (principal); I10 Essential (primary) hypertension; K21.9 Gastro-esophageal reflux disease without esophagitis; F41.8 Other specified anxiety disorders; H92.02 Otalgia, left ear; F17.200 Nicotine dependence, unspecified, uncomplicated; Z87.442 Personal history of urinary calculi; Z87.440 Personal history of urinary (tract) infections; Z88.5 Allergy status to narcotic agent; Z88.8 Allergy status to other drugs, medicaments and biological substances

== ENCOUNTER 2017-01-17 02:12 | Emergency (ER) | payer OTHER ==
[~2017-01-17] VITALS: Ht 160 cm; Wt 70.5 kg
[2017-01-17 02:18] VITALS: BP 131/90; PULSE 78; RESP 16; O2SAT 99
--- NOTE | 2017-01-17 02:41 | ED.REPORT ---
HPI-General Illness Date of Service Jan 17, 2017 ED Provider: Darren Galicia MD Pt is a 41 year old female with a history of alcohol abuse, hypothyroidism, anxiety, and Korsakoff syndrome who presents to the ED with multiple complaints. Pt c/o abdominal pain, worsening tremors on left side, dysphagia, headache, numbness, feet pain, weight gain, and hair loss. She states "these are all ongoing problems. Last time I was here, I was told to follow up with my primary care doctor and I don't want that answer again tonight." The pt also reports "There's symptoms all over my body. Today I noticed my hair falling out...rushing sound in front of my ears." Nursing Notes Stated Complaint: HEADACHE Chief Complaint: General Complaint Nursing Notes Reviewed: Yes Allergies: Coded Allergies: morphine (Verified Allergy, Intermediate, Rash, 01/04/17) CAN TOLERATE OXYCODONE PER PATIENT 10/27/15 VLO metoclopramide (Verified Adverse Reaction, Severe, EPS, HALLUCINATIONS, 01/04/17) Scheduled ([Thiamine]) 100 MG TABLET 100 MG PO DAILY Bupropion ER (Bupropion ER) 300 Mg Tab.er.24h 300 MG PO QAM Clonidine (Clonidine) 0.2 Mg Tablet 0.2 MG PO BID Divalproex DR (Depakote DR) 500 Mg Tablet 1,000 MG PO HS Swallowed whole without chewing to avoid local irritation of the mouth and throat. Gabapentin (Gabapentin) 600 Mg Tablet 600 MG PO BID Levothyroxine (Levothyroxine) 75 Mcg Tablet 75 MCG PO DAILYAC Vit#96/Ferrous Fum/FA ( Tablet) 1 Each Tablet 1 TABLET PO DAILY Ranitidine (Ranitidine) 150 Mg Capsule 150 MG PO BID Topiramate ER (Topiramate ER) 150 Mg Capsule 300 MG PO HS Trazodone (Trazodone) 100 Mg Tablet 200 MG PO HS Scheduled PRN Acetaminophen (Acetaminophen) 325 Mg Tablet 650 MG PO DAILY PRN PRN For Headache Ibuprofen (Ibuprofen) 200 Mg Capsule 400 MG PO DAILY PRN PRN For Headache Prochlorperazine Maleate (Prochlorperazine) 10 Mg Tablet 10 MG PO Q8 PRN PRN For Nausea/Vomiting Sumatriptan Succinate (Sumatriptan Succinate) 50 Mg Tablet 50 MG PO ASDIRECTED PRN PRN For Headache TAKE 1 TABLET AT ONSET OF MIGRAINE. MAY REPEAT IN 2 HRS IF NEEDED. 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 Anxiety Kidney Stone UTI Alcohol withdrawal- Acute visual hallucinations and altered mental status, Echogenic liver Chronic anemia Hypothyroidism Reports: GERD, Hypertension Reports: Depression Past Surgical History Breast implants 12/27/2015, Rectocele and cystocele Abdominoplasty Reports: Hysterectomy Family History non-contributory Smoking History Current Some Day Smoker Social History Severe alcohol abuse - sober at 8 months (01/17/17) Alcohol Use: Denies alcohol use Drug Use: Meth Other Social History: Good social support, , Local resident Occupation works 2 jobs has 5 children Ambulatory Status Independent Review of Systems + dysphagia Full Review of Systems GI: Reports: Abdominal pain Musculoskeletal: Reports: Extremity pain Endocrine: Reports: Weight gain Neurologic: Reports: Headache, Numbness, Shaking Complete sys rev & neg: except as marked. Physical Exam Vital Signs Vital Signs Date Time Temp Pulse Resp B/P Pulse Ox O2 Delivery O2 Flow Rate FiO2 01/17/17 06:13 36.7 66 16 139/94 99 Room Air 01/17/17 02:18 37.0 78 16 131/90 99 Room Air Initial VS: Reviewed, Vital signs abnormal Head / Eyes: Atraumatic, Normocephalic Neck: Supple, Full range of motion Respiratory: Breath sounds normal, Clear to auscultation, No respiratory distress Cardiovascular: Regular rate & rhythm, Heart sounds normal, Intact distal pulses Abdomen / GI: Soft, Non-tender Extremities: Vascular intact, Neuro intact Skin: Warm, Dry, No cyanosis Neurologic: Alert, Oriented, Nonfocal Psychiatric: Mood/affect normal, Behavior normal General/Constitutional: Awake, Alert, Cooperative Interpretation & Diagnostics Lab Results Interpretation Result Diagram: 01/17/17 0320 01/17/17 0320 Test 01/17/17 03:20 01/17/17 03:50 White Blood Count 6.0th/mm3 (3.8-10.1) Red Blood Count 3.56mil/mm3 (3.90-5.20) Hemoglobin 11.9g/dL (12.0-15.6) Hematocrit 35.7% (35.0-46.0) Mean Corpuscular Volume 100.3fL (81-100) Mean Corpuscular Hemoglobin 33.4pg (27.0-35.0) Mean Corpuscular Hemoglobin Concent 33.3% (32.0-37.0) Red Cell Distribution Width 12.1% (12.3-15.4) Platelet Count 306bil/L (150-400) Neutrophils (%) (Auto) 34.7% (40-74) Lymphocytes (%) (Auto) 43.7% (14-46) Monocytes (%) (Auto) 14.0% (4-12) Eosinophils (%) (Auto) 7.2% (0-5) Basophils (%) (Auto) 0.2% (0-3) Sodium Level 137mEq/L (134-144) Potassium Level 3.9mEq/L (3.5-5.2) Chloride Level 102mEq/L (97-108) Carbon Dioxide Level 21mmol/L (18-29) Blood Urea Nitrogen 17mg/dL (6-24) Creatinine 0.99mg/dL (0.57-1.00) Estimat Glomerular Filtration Rate 89mL/min (>59) Glucose Level 131mg/dL (60-99) Calcium Level 9.0mg/dL (8.5-10.1) Magnesium Level 1.9mg/dL (1.6-2.6) Total Bilirubin 0.2mg/dL (0.0-1.2) Aspartate Amino Transf (AST/SGOT) 29U/L (0-50) Alanine Aminotransferase (ALT/SGPT) 40U/L (0-32) Alkaline Phosphatase 63U/L (25-150) Total Protein 7.0g/dL (6.4-8.4) Albumin 4.0g/dL (3.4-5.0) Thyroid Stimulating Hormone (TSH) 8.720uIU/mL (0.450-4.500) Free Thyroxine 0.76ng/dL (0.82-1.77) Hold Armenta Top Tube Received (Received) Hold Urine Received (Received) Lab values outside NL range: no clinical significance. Lab Results Interpretation: Elevated TSH, low T4 Re-Eval/Medical Decision Med Decision/Clinical Course 41-year-old female who presents with multiple complaints. She seems very frustrated about her inability to get any answers concerning her ongoing health concerns. She has an appointment with her primary doctor in 10 days and some other appointments with a variety of specialists. She had an ultrasound done yesterday at [facility], those results are not available despite multiple attempts. She was recently started on replacement levothyroxine. Some of her symptoms are suggestive of hypothyroidism. Her T4 was low and her TSH was high. She will take 75 g 1-1/2 tablet (up from 1 tablet) until she is able to talk to her family doctor. She was given a Vicodin prepack to use one or 2 tablets at nighttime to help her sleep because her abdomen and abdominal pain has been keeping her awake. Source of Hx: Old records Time of Eval: 04:19 Re-Evaluation/Progress Note: Pt rechecked. Informed pt of lab results. All questions addressed. Time of Eval: 04:31 Re-Evaluation/Progress Note: Pt rechecked. Discussed pt's health records. All questions addressed. Time of Eval: 05:16 Re-Evaluation/Progress Note: Pt rechecked. Informed pt of plan for discharge. Pt understands and agrees with plan for discharge. F/U instructions and RTER warnings given. All questions addressed. Counseled Regarding: Diagnosis, Lab results, Need for follow-up, When/why to return to ED Discharge & Departure Primary Impression: Hypothyroidism Hypothyroidism type: unspecified Qualified Code: E03.9 - Hypothyroidism, unspecified Additional Impression: Abdominal pain Abdominal location: generalized Qualified Code: R10.84 - Generalized abdominal pain Disposition: Home Discharge Condition All VS Reviewed: Yes Condition: Stable Patient Instructions: Hypothyroidism (ED) Additional Instructions: Your thyroid level is low and your TSH is high, indicating that you need to increase your levothyroxin. Take one half tablet daily until you are able to talk to your doctor and get the level rechecked. I am unable to get your ultrasound results from [facility] right now. Follow-up with your regular doctor as soon as possible to get those results. Hydrocodone/ acetaminophen 5/325, one tab every 4-6 hours as needed for severe pain, #10 prepack dispensed. Referrals: Karuna Clarke MD (PCP) [place] Attestation Portions of this note were transcribed by Tsering Lee. I, Dr. Galicia personally performed the history, physical exam and medical decision-making; I reviewed and confirmed the accuracy of the information in the transcribed note. Signed by: Rona Haque, 01/17/17 and 03:30. copies to: Karuna Clarke MD, Howard L MD Jan 17, 2017 02:41 Tsering Barney Jan 17, 2017 02:53
[2017-01-17 03:31] LABS: BASOPHILS % (AUTO) 0.2 % (0-3); EOSINOPHILS % (AUTO) 7.2 % (0-5); Mean Corpuscular Hemoglobin 33.4 pg (27.0-35.0); Mean Corpuscular Volume 100.3 fL (81-100); NEUTROPHILS % (AUTO) 34.7 % (40-74); Platelet Count 306 bil/L (150-400)
[2017-01-17 04:04] LABS: Magnesium 1.9 mg/dL (1.6-2.6)
[2017-01-17] MEDS ORDERED: _HYDROcodone/APAP 5-325 mg Tablet PO PRN (05:20)
[2017-01-17 06:13] VITALS: BP 139/94; PULSE 66; RESP 16; O2SAT 99
== END 2017-01-17 05:50 | disposition home or self-care (01) ==
LOC: SED 02:12
DX: E03.9 Hypothyroidism, unspecified (principal); R10.84 Generalized abdominal pain; R25.1 Tremor, unspecified; R13.10 Dysphagia, unspecified; R51 Headache; R20.2 Paresthesia of skin; R63.5 Abnormal weight gain; L65.9 Nonscarring hair loss, unspecified; F41.9 Anxiety disorder, unspecified; K21.9 Gastro-esophageal reflux disease without esophagitis; I10 Essential (primary) hypertension; F32.9 Major depressive disorder, single episode, unspecified; F17.200 Nicotine dependence, unspecified, uncomplicated; Z87.440 Personal history of urinary (tract) infections; Z87.442 Personal history of urinary calculi; Z88.2 Allergy status to sulfonamides; Z88.8 Allergy status to other drugs, medicaments and biological substances

== ENCOUNTER → 2017-03-20 | Day surgery (SDC) | payer OTHER ==
[~2017-03-20] VITALS: Ht 160 cm; Wt 70.0 kg
[~2017-03-20] MED LIST changes: +Lactated Ringer's 1,000 ML IV ONE; +Lactated Ringer's 1,000 ML IV SCH; +Ondansetron 2 mg/mL 2 mL Inj IVPUSH PRN; +Promethazine Inj 12.5 MG in Dextrose 5%-Pha MIX 50 ML IV ONE; +SERT50TA PO
[2017-03-20 14:17] VITALS: BP 146/87; PULSE 76; RESP 16; O2SAT 99
--- NOTE | 2017-03-20 14:46 | PCM.HPANE ---
Patient Data Date of Service: Mar 20, 2017 Surgeon Admitting Provider: Attending Provider:Shashank Nielsen MD Primary Care Physician:Karuna Clarke MD Other Provider:Nayla Storm Anesthesia Reason for Visit Change In Bowel Habits, Dysphagia Ht/WT & BMI Height (Feet): 5 Height (Inches): 3 Weight (Kilograms): 70 Body Mass Index 27.00 Allergies Coded Allergies: morphine (Verified Allergy, Intermediate, Rash, 03/20/17) CAN TOLERATE OXYCODONE PER PATIENT 10/27/15 VLO metoclopramide (Verified Adverse Reaction, Severe, EPS, HALLUCINATIONS, ) Past Anesthesia History Anesthesia History: Denies:: Abnormal Airway, Anesthesia Reactions, Difficult Intubation, Fam Anesthesia Reaction, Fam Malignant Hypertherm, Malignant Hyperthermia Diabetes History Hx Diabetes?: No MRSA MRSA: No Medications Active Scripts [Thiamine] (Vitamin B1)100 MG TABLET No Conflict Qrexu675 Mg PO DAILY #30 Prov:Lizandro Negro MD 01/06/17 Vit#96/Ferrous Fum/FA ( Tablet)1 Each Tablet1 Tablet PO DAILY # 30 TABLET Prov:Lizandro Negro MD 01/06/17 Levothyroxine 75 Mcg Ghpajm58 Mcg PO DAILYAC #30 TABLET Prov:Lizandro Negro MD 01/06/17 Reported Medications Sertraline HCl (Zoloft)50 Mg Suglob91 Mg PO DAILY 30 Days Ref 0 03/20/17 Sumatriptan Succinate 50 Mg Zzoafd71 Mg PO ASDIRECTED PRN For Headache TAKE 1 TABLET AT ONSET OF MIGRAINE. MAY REPEAT IN 2 HRS IF NEEDED. MAX 2 DOSES/24 HRS 01/04/17 Acetaminophen 325 Mg Sfpvkg121 Mg PO DAILY PRN For Headache Ref 0 01/04/17 Ibuprofen 200 Mg Blywbju483 Mg PO DAILY PRN For Headache Ref 0 01/04/17 Ranitidine 150 Mg Agekulu941 Mg PO BID Ref 0 01/04/17 Prochlorperazine Maleate (Prochlorperazine)10 Mg Qjgvfj72 Mg PO Q8 PRN For Nausea/Vomiting Ref 0 01/04/17 Topiramate ER 150 Mg Yvbxqem170 Mg PO HS 01/04/17 Gabapentin 600 Mg Ijilyg264 Mg PO BID Ref 0 01/04/17 Trazodone 100 Mg Iyiyyd483 Mg PO HS Ref 0 01/04/17 Clonidine 0.2 Mg Tablet0.2 Mg PO BID Ref 0 01/04/17 Discontinued Reported Medications Bupropion ER 300 Mg Tab.er.10q125 Mg PO QAM Ref 0 01/04/[address] (Depakote DR)500 Mg Tablet1,000 Mg PO HS Ref 0 Swallowed whole without chewing to avoid local irritation of the mouth and throat. 01/04/17 History History of ENT Problems?: No HEENT History: Positive for:: Dysphagia Denies:: Abnormal Airway Difficult Intubation Hearing Problem Denture Type: None Teeth Condition: Within Normal Limits Hx of Heart Problems?: No Cardiovascular History: Denies:: Congestive Heart Failure Heart Murmur Hypertension Irregular Heartbeat Pacemaker Thrombophlebitis Hx of Respiratory Problem?: No Respiratory History: Denies:: Asthma COPD Chest Surgery Dyspnea Emphysema Hemoptysis Pneumonia Tuberculosis Hx Neurologic Problems?: No Neurological History: Denies:: CVA Hx of GI Problems?: Yes Hx of Problems?: Yes Genitourinary History: Positive for:: Kidney Stones Urinary Tract Infection Denies:: HX of Hemodialysis HX of Peritoneal Dialysis: No Female Hx: Denies:: Endometriosis Pelvic Inflammatory Hx Musculoskeletal Problems?: No Hx of Psycho/Social Problems?: Yes Psycho Social History: Positive for:: Anxiety Hx Depression Denies:: Bipolar Disorder Suicide Attempt (" I only say things about SI when I am drunk") Hx Surgeries?: Yes (HYSTERECTOMY, CYSTO/RECTOCELE, BREAST IMPLANTS ) Hx Any Other Health Problems?: Yes Other History: Positive for:: Hospitalization ( gastritis) Denies:: Cancer Thyroid Disease History Blood Transfusions: Denies:: Blood Transfuse Reaction Blood Transfusions Hx Diabetes: No Hx Alcohol Use: Yes (6 MONTHS SOBER)Hx Substance Use: No Smoking Status: Current Some Day Smoker Have You Smoked inLast 12 mo: No Stop/Bang Treated for Sleep Apnea?: No Do You Have a CPAP Machine?: No S-Snoring: Do You Snore Loudly: No T-Tired: feel tired, fatigued: Yes O-Obsered: Observed not breath: No P-Blood Pressure: treated: No B- Body Mass Index > 35 kg/m2: No A- Age over 50: No N- Neck Large Circumference: No G- Gender Male: No ANGELINA Total Score: 1 Risk Assessment Category Category 1A: Patient has history of documented sleep apnea, and HAS NOT received any narcotic, sedative or anesthesia administration during this stay. Category 1B: Patient has history of documented sleep apnea, and HAS received any narcotic , sedative or anesthesia administration during this stay Category 2: Patient has SUSPECTED Obstructive Sleep Apnea, and HAS received any narcotic , sedative or anesthesia administration during this stay. Category 3: Patient has SUSPECTED Obstructive Sleep Apnea and HAS NOT received narcotic, sedative or anesthesia administration during this stay. Category 4: Outpatient in Procedural Areas with known sleep apnea or who screen positive for High Risk via the STOP/BANG questionnaire. Exam Exam Vital Signs Vital Signs Date Time Temp Pulse Resp B/P Pulse Ox O2 Delivery O2 Flow Rate FiO2 03/20/17 14:17 37.1 76 16 146/87 99 Room Air General Appearance: Alert, Oriented X3, Cooperative HEENT/AIRWAY: MP 2 Lungs: Clear to Auscultation Heart: Exam Unremarkable Plan Impression Patient chart reviewed, patient interviewed and anesthestic plan with risks, benefits, and alternatives discussed, and informed consent obtained. NPO per Anesth. Guidelines: Yes ASA Physical Status: ASA2 Mod Systemic Disease Anesthetic Plan: MAC Bene/Risks/Altern/Consents: Yes HP Complete Prior to Induction: Yes Bo Morgan MD Mar 20, 2017 14:46
--- NOTE | 2017-03-20 15:25 | PCM.ENDEGD ---
EGD Date of Service: Mar 20, 2017 Physician Shashank Nielsen MD Pre Procedure Diagnosis: Dysphagia Post Procedure Dx & Findings: Minimal Schatzki's ring Procedure Esophagogastroduodenoscopy PROCEDURE IN DETAIL: Sedation administered by anesthesiology. After proper sedation, Olympus video endoscope was inserted into patient's mouth and esophagus was successfully intubated. Scope introduced esophagus. Esophagus showed normal shiny whitish mucosa consistent with squamous cell component. Z line was intact at 40 cm from the incisors. There is a shallow Schatzki's ring. The scope was biopsied. Scope further advanced to the stomach. Stomach showed normal shiny mucosa with normal appearing rugae folds without any ulcer mass erosion. Cardia fundus body antrum pylorus were all visualized. Retroflexion was done. Stomach was easily inflated and deflatable using air. Scope further advanced to the distal duodenum. Duodenum revealed normal villous structures with normal appearing folds without any mass ulcer erosion. Impression Shallow Schatzki's ring but I do not believe this would cause dysphagia. Presedation Assessment Risks and Benefits Informed consent was obtained from the patient after all risks and benefits including but not limited to drug reaction, infection, pain, bleeding, perforation, as well as alternatives were discussed. Patient monitoring Continuous pulse oximetry, cardiac monitoring, blood pressure monitoring, IV access, and oxygen at 2L per nasal cannula. Complications There were no periprocedural complications identified. Post Procedure Plan Post Procedure Recommendations 1. Restrict activities today. 2. Resume normal activities in the morning. 3. Resume medications. 4. GERD behavioral modification: - Avoid fatty, acidic, spicy, large meals - Do not lie down after meals - Do not eat or drink anything for at least 2 1/2 hours before going to bed at night - Discontinue tobacco and alcohol - Decrease or avoid caffeine - Avoid chocolate and mints - Decrease weight - Avoid aspirin and non steroidal anti-inflammatory agents (NSAID) such as Aleve, Advil, Mobic, Naproxen, Ibuprofen, etc 5. Add proton pump inhibitor. Take 30 minutes before 1st meal of the day. 6. Patient informed of normal post procedure side effects as bloating, drowsiness, blood streaking in the stool 7. If gastric biopsy reveal H.pylori, continue with appropriate treatment 8. If small bowel biopsy reveals celiac, continue with appropriate treatment 9. Please don't hesitate to call me with any questions Shashank Nielsen MD Mar 20, 2017 15:25
--- NOTE | 2017-03-20 15:27 | PCM.ENDCOL ---
Colonoscopy Date of Service: Mar 20, 2017 Physician Shashank Nielsen MD Pre Procedure Diagnosis: Change in bowel pattern sensation of bowel getting stuck Post Procedure Dx & Findings: Hemorrhoids Procedure Colonoscopy PROCEDURE IN DETAIL: Sedation administered by anesthesia Prep adequate Withdrawal time 9 minutes After unremarkable rectal examination the Olympus video colonoscope was inserted patient's anal canal and was advanced to cecum. Landmarks were identified including the ileocecal valve and appendiceal orifice. Scope was withdrawn systematically. Visualized colonic mucosa showed healthy shiny mucosa with normal healthy-appearing vasculature. In the rectum retroflexion was done which showed hemorrhoids. Anal canal was inspected carefully on the way out and hemorrhoids noted. Impression Hemorrhoids Recommendation Repeat colonoscopy and patient is 50 years old. Presedation Assessment Risks and Benefits Informed consent was obtained from the patient after all risks and benefits including but not limited to drug reaction, infection, pain, bleeding, perforation, as well as alternatives were discussed. Patient monitoring Continuous pulse oximetry, cardiac monitoring, blood pressure monitoring, IV access, and oxygen at 2L per nasal cannula. Complications There were no periprocedural complications identified. Post Procedure Plan Post Procedure Recommendations 1. Restrict activities today. 2. Resume normal activities in the morning. 3. Resume medications. 4. Patient informed of normal post procedure side effects as bloating, drowsiness, blood streaking in the stool. 5. average risk CRCS. If colon polyps come back as: -Hyperplastic- can repeat colonoscopy in 10 years -Tubular adenoma- repeat colonoscopy in 5 years -Tubulovillous/villous adenoma- repeat colonoscopy in 3 years -If any dysplasia- return to clinic as soon as possible 6. Please don't hesitate to call me with any questions. Shashank Nielsen MD Mar 20, 2017 15:26
[2017-03-20 15:28] VITALS: BP 147/85; PULSE 102; RESP 14; O2SAT 97
--- NOTE | 2017-03-20 15:31 | PCM.ANEP1 ---
Post Anesthesia PACU Phase 1 Assessment Vital Signs Vital Signs Date Time Temp Pulse Resp B/P Pulse Ox O2 Delivery O2 Flow Rate FiO2 03/20/17 15:28 102 14 147/85 97 Room Air 03/20/17 14:17 37.1 76 16 146/87 99 Room Air Anesthetic Administered: MAC Level of Alertness: Awake, talking Pain: No Nausea or Vomiting: No CV Function & Hydration Stable: Yes Airway Device: Oxygen Delivery: Room Air Lungs: Clear to Auscultation PACU Phase 2 Assessment Patient Instructions Provided: N/A Bo Morgan MD Mar 20, 2017 15:31
[2017-03-20 15:36] VITALS: BP 145/79; PULSE 92; RESP 14; O2SAT 98
[2017-03-20 16:00] VITALS: BP 137/90; PULSE 84; RESP 14; O2SAT 99
--- NOTE | 2017-03-25 12:49 | PATH ---
SURGICAL PATHOLOGY Attending Physician:Shashank Nielsen M.D. CASE STATUS: Signed Out PATIENT NAME: OSMAR VARGAS PID: [id number] : 1975 DATE COLLECTED:03/20/2017 00:00 SPECIMEN: Esophagus, Biopsy CLINICAL HISTORY: 1). SCHATZKI'S RING BIOPSY FINAL DIAGNOSIS: Esophagus, Biopsy: Squamous mucosa with no diagnostic abnormality. Intraepithelial eosinophils are not increased. Negative for dysplasia and malignancy. ICD10: R13.10 GROSS DESCRIPTION: The specimen is received in one formalin filled container labeled with the patient's name, sublabeled "Schatzki's ring" and consists of a 0.2 x 0.1 x 0.1 CM portion of tissue which is entirely submitted in one cassette. 03/21/2017MA ICD-9 CODES: CPT CODES: 1: 96005 Electronically Signed Out Luiza Riggins MD [facility] Pathology [facility] [address], [place] [address] Technical component performed at [facility], [facility] [address], [place], [address]
== END | disposition home or self-care (01) ==
LOC: END 00:34
PROVIDERS: ATTEND Internal Medicine
DX: R19.4 Change in bowel habit (principal); K64.8 Other hemorrhoids; K22.2 Esophageal obstruction; K21.9 Gastro-esophageal reflux disease without esophagitis
CPT/HCPCS: 43239; G0121; J2550; J7120